=== PATIENT | male | born 1970 | race Caucasian/White ===

== ENCOUNTER 2020-01-14 13:50 | Inpatient (IN) | payer BC, SELFPAY ==
[2020-01-14] VITALS (38 sets, daily range): BP systolic 140–184; BP diastolic 87–147; PULSE 105–122; RESP 14–41; TEMP 36–36.9; O2SAT 86–100
--- NOTE | ~2020-01-14 | CT_ITS ---
EXAMINATION: CTA chest PE protocol DATE: 01/14/2020 18:06 INDICATION: Shortness of breath, chest pain TECHNIQUE: Computed tomography angiography (CTA) of the chest was performed with 100 mL Omnipaque-350 intravenous contrast timed to evaluate the pulmonary arteries. Coronal maximum intensity projection 3D-reconstructions were created by the technologist. Automated exposure control and iterative reconst ruction technique were employed. Exam dose: 826.95 mGy-cm total exam DLP. COMPARISON: 01/14/2020 portable AP chest FINDINGS: There is diagnostic contrast enhancement of the pulmonary arteries and no evidence of pulmo nary embolism. Cardiomegaly. No pericardial effusion. There are small bilateral pleural effusions. No thoracic aortic aneurysm or dissection. There is mild prominence of the mediastinal and hilar lymp h nodes, possibly reactive. There is pulmonary vascular congestion and thickening of the interlobular septa, consistent with aundrea estive heart failure and pulmonary interstitial edema. Included skeletal structures are unremarkable. IMPRESSION: No evidence of pulmonary embolism Cardiomegaly, congestive heart failure, mild pleural effusions Reviewed, dictated and finalized at [facility]. Reviewed, dictated and finalized at [facility].
--- NOTE | ~2020-01-14 | XR_ITS ---
EXAMINATION: XR chest 1V portable EXAM DATE: 01/14/2020 15:24 INDICATION: Shortness of breath. Generalized chest pain. TECHNIQUE: Portable AP frontal chest x-ray was obtained. Comparison is made to prior examination from 11/20/2016. FINDINGS: The lungs are clear. There are no pleural effusions. Cardiac silhouette is prominent but magnified on this AP technique. There is no pneumothorax suspected. The bones and soft tissues are unremarkable. IMPRESSION: No acute cardiopulmonary findings. Reviewed, dictated and finalized at location [facility].
--- NOTE | ~2020-01-14 | XR_ITS ---
XR chest 1V portable 01/16/2020 04:11 Indication: Shortness of breath Procedure: AP portable chest Comparison: 01/14/2020 Findings: Cardiomegaly with progression of interstitial edema. Small pleural effusions. No pneumothor ax. Impression: 1: Cardiomegaly with progression of interstitial edema. Reviewed, dictated and finalized at location [facility]. Impression: 1: Cardiomegaly with progression of interstitial edema.
--- NOTE | ~2020-01-14 | CT_ITS ---
EXAMINATION: CT soft tissue neck wo con EXAM DATE: 01/14/2020 18:06 INDICATION: Cheek abscess. TECHNIQUE: Spiral CT of the neck was performed without contrast. Axial, coronal and sagittal images were reviewed. The dose-length product (DLP) for this examination was 577.72 mGy-cm. The exposure was tailored according to patient size (auto mA exposure control), and iterative reconstruction (ASIR ) was used as additional dose reduction technique. There is no prior study for comparison. FINDINGS: There is contrast from the CT pulmonary scan which was performed immediately prior to this study. There is large ulceration along the left cheek with severe swelling deep to this, with a large phlegmon superficial to the left masseter muscle, and contiguous to the superficial lobe of the paro tid gland. This region in total measures about 7 cm in diameter by 2.3 cm in thickness. There are str ands of enhancement throughout this, solid component but there could be multiple loculations of fluid between these. No retropharyngeal or deeper abscess. No evidence of neck venous thrombosis. The thyroid gland is unr emarkable. The submandibular and parotid glands are symmetric. Some borderline-sized left interna l jugular chain lymph nodes, probably reactive. Enlarged right paratracheal and prevascular lymph no margaret; see pulmonary CT report same date. The airway is unremarkable. Parapharyngeal and pre-glottic fat planes are preserved. The orbits are unremarkable. Small right maxillary sinus mucous retent ion cyst. Mastoid air cells are well aerated. No sinus air-fluid levels. Partially imaged pleural ef fusions. There is overall moderate cervical spondylosis. IMPRESSION: 1. Large ulceration, phlegmon superficial to the left masseter, parotid, zygomatic arch, probably wi th multiple small pockets of necrosis/abscess. 2. Mild reactive left internal jugular lymphadenopathy. 3. Incompletely imaged mediastinal lymphadenopathy, correlate with dedicated CT report. Reviewed, dictated and finalized at location [facility]. IMPRESSION: 1. Large ulceration, phlegmon superficial to the left masseter, parotid, zygom atic arch, probably with multiple small pockets of necrosis/abscess. 2. Mild reactive left internal jugular lymphadenopathy. 3. Incompletely imaged mediastinal lymphadenopathy, correlate with dedicated C T report.
--- NOTE | 2020-01-14 14:24 | ECG_ITS ---
Measurements Intervals [place] Rate: 120 P: 64 LA: 154 QRS: 91 QRSD: 121 T: 85 QT: 329 QTc: 466 Interpretive Statements SINUS TACHYCARDIA RIGHT AXIS DEVIATION LEFT VENTRICULAR HYPERTROPHY AND ST-T CHANGE ST ELEVATION IN ANTERIOR LEADS- PROBABLY EARLY REPOLARIZATION BORDERLINE ST-T WAVE ABNORMALITY- INF/LAT LEADS ABNORMAL ECG Electronically Signed On 01-14-2020 14:46:34 CDT by Dave Rowley D.O.
[2020-01-14 14:44] LABS: Glucose Point of Care 467 (65-105)
[2020-01-14] MEDS: SODIUM CHLORIDE 0.9% IV 1,000 ML 999 ML IV CONT ×2 (14:49→16:38)
[2020-01-14 14:54] LABS: Basophils Absolute Auto 0.1 K/mm3 (0.0-0.1); Basophils Percent Auto 0.3 % (0.2-1.2); Eosinophils Absolute Auto 0.1 K/mm3 (0-0.3); Eosinophils Percent Auto 0.5 % (0-4.4); Hematocrit 44.8 % (42.0-52.0); Hemoglobin 15.7 g/dL (14.0-18.0); Immature Granulocyte Absolute 0.09 K/mm3 (0.00-0.031); Immature Granulocyte Percent A 0.5 % (0-0.5); Lymphocytes Absolute Auto 1.84 K/mm3 (0.9-3.2); Lymphocytes Percent Auto 10.9 % (18.3-44.2); Mean Corpuscular Hemoglobin 30.4 pg (26-34); Mean Corpuscular Volume 86.7 fl (80-100); Monocytes Absolute Auto 1.2 K/mm3 (0.1-0.6); Monocytes Percent Auto 6.8 % (2.6-8.5); Neutrophils Absolute Auto 13.6 K/mm3 (1.3-6.7); Platelet Count Result 305 k/mm3 (150-375); Red Blood Count 5.17 M/mm3 (4.6-6.20); White Blood Count 16.8 K/mm3 (4.5-10.0)
[2020-01-14 15:06] LABS: Lactic Acid Reflex 1.6 mmol/L (0.7-2.1)
[2020-01-14 15:15] LABS: Alanine Aminotransferase 12 U/L (4-50); Albumin Level 3.4 g/dL (3.5-5.1); Alkaline Phosphatase 166 U/L (38-126); Anion Gap 9 mmol/L (8-16); Aspartate Amino Transferase 20 U/L (17-59); Bilirubin,Total 0.5 mg/dL (0.2-1.3); Blood Urea Nitrogen 10 mg/dL (9-20); Calcium 8.6 mg/dL (8.4-10.2); Carbon Dioxide 23 mmol/L (22-30); Chloride 97 mmol/L (98-107); Estimated CRCL calculation 133 ml/min; Estimated Glomerular Filt Rate > 60; Glucose 540 mg/dL (75-110); Potassium 3.9 mmol/L (3.4-5.0); Sodium 129 mmol/L (137-145)
[2020-01-14 15:18] LABS: INR 1.1; Partial Thromboplastin Time 31.5 SECONDS (22.3-36.8); Prothrombin Time 13.7 Seconds (11.1-14.7)
[2020-01-14 15:24] LABS: Troponin I 0.043 ng/mL (0.000-0.034)
[2020-01-14] MEDS: ASPIRIN 81 MG CHEWABLE TABLET 324 MG PO (16:06)
[2020-01-14 16:19] LABS: Add Urine Microscopic? YES; Appearance Urine Clear (Clear); Bilirubin Urine Negative (Negative); Blood Urine Negative (Negative); Color Urine Straw (Yellow); Glucose Urine UA 3+ mg/dL (Negative); Ketones Urine Negative (Negative); Leukocyte Esterase Ur Negative LEU/UL (Negative); Nitrate Urine Negative (Negative); Protein Urine Negative (Negative); RBC Urine 0-2 /hpf (0-2); Urobilinogen Urine Negative mg/dL (<2.0); WBC Urine 0-3 /hpf
[2020-01-14 16:23] LABS: Specific Grav Ur 1.032 (1.001-1.035)
[2020-01-14 16:34] LABS: Amphetamine Screen Urine Positive (Negative); Barbiturate Screen Urine Negative (Negative); Benzodiazepines Screen Urine Negative (Negative); Cannabinoid Screen Urine Negative (Negative); Cocaine Screen Urine Negative (Negative); Methadone Screen Urine Negative (Negative); Opiate Screen Urine Negative (Negative); Phencyclidine Screen Urine Negative (Negative)
[2020-01-14] MEDS: MORPHINE SULFATE 4 MG/ML INJ IV PUSH (16:39)
[2020-01-14 16:44] LABS: Base Excess ABG -0.2 mEq/l (+/-2.0); Fractional Inspired Oxygen 21 %; HCO3 ABG 21.9 mEq/l (22.0-26.0); Methemoglobin ABG 0.2 %THb (0-1.5); Oxygen Content ABG 20.4 %vol (16.0-22.0); Oxygen Saturation ABG 94.2 % (95.0-100.0); Oxyhemoglobin 92.2 % THb (90.0-100.0); PCO2 ABG 29.8 mmHg (35.0-45.0); PO2 FiO2 Ratio Arterial Blood 3.05 %; Reduced Hemoglobin 5.6 %THb (0-5.0); Total Hemoglobin 15.8 g/dL (12.0-18.0); pH ABG 7.485 (7.350-7.450)
[2020-01-14 16:46] LABS: Device ROOM AIR; Modified Allen's Test Pass; Site Drawn LEFT RADIAL
[2020-01-14] MEDS: LIDOCAINE HCL 1% LOCAL INJ 20 ML VIAL (17:23)
[2020-01-14] MEDS: MORPHINE SULFATE 2 MG/ML INJ ×2 (17:23)
[2020-01-14] MEDS: INSULIN HUMAN REGULAR (*BKC) 100 UNITS/ML 10 UNITS IV PUSH (18:11)
--- NOTE | 2020-01-14 19:03 | ED.GENADULT ---
HPI - General Adult General Chief complaint: Wound/Laceration <Gab Rojas PA-C - Last Filed: 01/14/20 19:42> Stated complaint: Boil on face <Gab Rojas PA-C - Last Filed: 01/14/20 19:42> Time Seen by Provider: 01/14/20 14:11 <Gab Rojas PA-C - Last Filed: 01/14/20 19:42> Source: patient <Gab Rojas PA-C - Last Filed: 01/14/20 19:42> Mode of arrival: ambulatory <Gab Rojas PA-C - Last Filed: 01/14/20 19:42> Limitations: no limitations <Gab Rjoas PA-C - Last Filed: 01/14/20 19:42> History of Present Illness HPI narrative: Patient is a 49-year-old male who presents to emergency department for evaluation of facial abscess that has been present for 1 week patient has been attempting to manage the abscess at home by himself with gradually increasing size every day. Patient notes moderate aching pain worse with any activity touch or movement. Patient also notes over the last couple of months he has had intermittent chest pain and dyspnea. Patient notes he has history of acute coronary syndrome and diabetes mellitus historically but has not been seen by any doctor in the recent past nor has he been taking any medications. Patient denies fever vomiting diarrhea or URI symptoms <Gab Rojas PA-C - Last Filed: 01/14/20 19:42> Related Data Home medications: Home Medications Medication Instructions Recorded Confirmed No Home Medications 01/14/20 <Gab Rojas PA-C - Last Filed: 01/14/20 19:42> Allergies/adverse reactions: Allergies Allergy/AdvReac Type Severity Reaction Status Date / Time No Known Allergies Allergy Verified 01/14/20 14:40 <Gab Rojas PA-C - Last Filed: 01/14/20 19:42> Review of Systems Review of Systems: All systems reviewed & are unremarkable except as noted in HPI and below <Gab Rojas PA-C - Last Filed: 01/14/20 19:42> PMFSH Past Medical History Medical History: Medical History (Updated 01/14/20 @ 19:12 by Gab Rojas PA-C) Diabetes mellitus Hx of medication noncompliance Hypertension Obesity <Gab Rojas PA-C - Last Filed: 01/14/20 19:42> Social History Social History: Social History (Updated 01/14/20 @ 19:05 by Gab Rojas PA-C) Smoking status: Current every day smoker Substance use type: amphetamines Gender identity (if verbalized by the patient): Male <Gab Rojas PA-C - Last Filed: 01/14/20 19:42> Exam Narrative: Exam Narrative: GENERAL: Well-appearing, obese, and in no acute distress. HEAD: Normocephalic, atraumatic. EYES: PERRLA and EOMI. ENT: Nares clear, no rhinorrhea or epistaxis. Mucous membranes moist. Oropharynx without tonsillar hypertrophy exudate or other lesions. NECK: Supple. No adenopathy or masses. CHEST: Clear to auscultation. No respiratory distress. No wheezes rales or rhonchi HEART: Tachycardic rate and regular rhythm. No murmur heard. Normal peripheral pulses. ABDOMEN: Soft, nontender, nondistended, EXTREMITIES: Normal range of motion. No edema. SKIN: Warm, dry, no rash. Patient with large tender red area to the left cheek in the preauricular region that is isolated to the cheek with purulent drainage from multiple openings NEURO: No focal deficits. Alert and oriented x3. Cranial nerves II through XII grossly intact PSYCH: Normal mood and affect. <Gab Rojas PA-C - Last Filed: 01/14/20 19:42> Course Course Emergency Course: Patient in the room at this time aware of case findings treatment plan patient resting in the room comfortably agreeing to stay in hospital will be seen by ENT for follow-up on his facial wound patient will be managed by the hospitalist service. Antibiotics were initiated in the emergency department. Patient will be placed in the IMU with trending of his troponins. Patient denying any chest pain at this time <Gab Rojas PA-C - Last Filed: 01/14/20 19:
--- NOTE | 2020-01-14 19:56 | PM.IMHP ---
H&P: HPI History of Present Illness Date/Time: 01/14/20 19:56 Chief complaint: Facial abscess, elevated troponin, heart failure Narrative: This is a pleasant 49 year old Diabetic male who presented to the hospital with a complaint of a left sided facial abscess that has been worsening over the past 5 days. He believes that it started out as an ingrown hair after shaving. He admits to popping it the first day when he noticed it but since then it has been slowly getting larger, more red, and painful. He denies any fever, nausea, vomiting, chills, sore throat, cough, but does report that he has ongoing chest heaviness and exertional dyspnea. He has not noticed any LE swelling. He reports having a heart attack about 10 years ago but denies any stents. He currently does not take any medications for his diabetes. He tested positive for methamphetamines in the ER and admitted to methamphetamine abuse. The patient was evaluated in the ER and found to have a large left sided facial phelgmon which was incised and drained at bedside. CTA Chest demonstrated no evidence of pulmonary embolism. Cardiomegaly, congestive heart failure, and mild pleural effusions. His troponin came back mildly positive at 0.043. The patient was started on Vancomycin and Ertapenem and given IV fluids. Cardiology and ENT were both consulted. Review of Systems Review of Systems: All systems reviewed & are unremarkable except as noted in HPI and below PMFSH Past Medical History Medical History (Updated 01/14/20 @ 20:31 by Yusuf Resendez MD) Diabetes mellitus Hx of medication noncompliance Hypertension Obesity Surgical History Surgical History (Updated 01/14/20 @ 20:06 by Yusuf Resendez MD) History of surgery on left wrist Family History Family History (Updated 01/14/20 @ 20:06 by Yusuf Resendez MD) Father Acute myocardial infarction of an acute RI at age 40. Social History Social History Smoking packs per day: 0.25 Smoking cigarettes per day: 5.0 Smoking status: Light tobacco smoker Tobacco type: cigarettes Second hand tobacco smoke exposure: Yes Alcohol intake: never Substance use: current Substance use type: methamphetamine Gender identity (if verbalized by the patient): Male Spiritual care concerns: No Meds Home Medications and Allergies Home Medications Medication Instructions Recorded Confirmed Type No Home Medications 01/14/20 01/14/20 History Allergies Allergy/AdvReac Type Severity Reaction Status Date / Time No Known Allergies Allergy Verified 01/14/20 14:40 Vital Signs Vital Signs - 24 hr 01/14/20 13:59 01/14/20 14:38 01/14/20 14:39 Temperature 36.9 C Pulse Rate 122 H 119 H 119 H Respiratory Rate 19 23 H 18 Blood Pressure 156/108 H 150/110 H Pulse Oximetry 100 96 94 01/14/20 14:45 01/14/20 15:01 01/14/20 15:02 Temperature Pulse Rate 116 H 115 H 113 H Respiratory Rate 24 H 16 14 Blood Pressure 145/100 H Pulse Oximetry 99 96 91 01/14/20 15:15 01/14/20 15:16 01/14/20 15:31 Temperature Pulse Rate 116 H 117 H 109 H Respiratory Rate 33 H 33 H 18 Blood Pressure 167/128 H 178/120 H Pulse Oximetry 92 97 95 01/14/20 15:32 01/14/20 15:45 01/14/20 15:46 Temperature Pulse Rate 113 H 118 H Respiratory Rate 25 H 31 H Blood Pressure 162/118 H Pulse Oximetry 91 94 93 01/14/20 15:47 01/14/20 16:31 01/14/20 16:33 Temperature Pulse Rate Respiratory Rate Blood Pressure 157/113 H Pulse Oximetry 92 95 01/14/20 16:51 01/14/20 17:01 01/14/20 17:11 Temperature Pulse Rate 114 H Respiratory Rate 36 H Blood Pressure 147/117 H Pulse Oximetry 96 01/14/20 17:15 01/14/20 18:12 Temperature Pulse Rate 114 H 114 H Respiratory Rate 21 H 29 H Blood Pressure 143/101 H Pulse Oximetry 94 Exam Const: General: cooperative, alert, awake and ill appearing Nutr
[2020-01-14 20:45] LABS: Cholesterol 208 mg/dL (0-200); HDL Direct 24 mg/dL; Triglycerides 177 mg/dL (<150)
[2020-01-14] MEDS: LACTATED RINGERS 1,000 ML 125 ML IV CONT (20:50)
[2020-01-14 20:56] LABS: LDL Cholesterol Direct 143 mg/dL
[2020-01-14 21:00] LABS: NT Pro B Type Natriuretic Pept 3980 PG/ML (5-100); Troponin I 0.048 ng/mL (0.000-0.034)
[2020-01-14] MEDS: FAMOTIDINE 20 MG/2 ML VIAL IV PUSH (22:44)
[2020-01-14] MEDS: FUROSEMIDE INJ 40 MG/4 ML VIAL IV PUSH (22:44)
[2020-01-14 22:51] LABS: Glucose Point of Care 148 (65-105)
[2020-01-14 23:51] LABS: Troponin I 0.054 ng/mL (0.000-0.034)
[2020-01-15] VITALS (15 sets, daily range): BP systolic 118–171; BP diastolic 78–109; PULSE 100–125; RESP 18–24; TEMP 35.9–37.4; O2SAT 94–97
[2020-01-15 00:31] LABS: Glucose Point of Care 393 (65-105)
[2020-01-15] MEDS: INSULIN ASPART (*BKC) 100 UNITS/ML SUB-Q ×4 (00:44→18:16)
--- NOTE | 2020-01-15 00:54 | ADMIMU ---
This patient, Ayana Lee, was admitted to IMU status, and placed in IMU Room 214-01 at 2220. Patient/family oriented to hospital policies and general routines including ID bracelet, bed and alarms, visiting hours, pain management, procedures, bathroom and other care routines, personal items, smoking policy, room service/diet, and visiting hours. Valuables list has been completed. Information on how to activate the Rapid Response Team has been discussed. Patient/Family are encouraged to report perceived risks to care and to ask questions if they do not understand what they are told or what they should do.
[2020-01-15 05:35] LABS: Basophils Absolute Auto 0.1 K/mm3 (0.0-0.1); Basophils Percent Auto 0.4 % (0.2-1.2); Eosinophils Absolute Auto 0.1 K/mm3 (0-0.3); Eosinophils Percent Auto 0.5 % (0-4.4); Hematocrit 45.4 % (42.0-52.0); Hemoglobin 15.7 g/dL (14.0-18.0); Immature Granulocyte Percent A 0.5 % (0-0.5); Lymphocytes Absolute Auto 2.16 K/mm3 (0.9-3.2); Lymphocytes Percent Auto 11.7 % (18.3-44.2); Mean Corpuscular HGB Conc 34.6 g/dl (32-36); Mean Corpuscular Hemoglobin 29.8 pg (26-34); Mean Corpuscular Volume 86.3 fl (80-100); Monocytes Absolute Auto 1.5 K/mm3 (0.1-0.6); Neutrophils Absolute Auto 14.6 K/mm3 (1.3-6.7); Neutrophils Percent Auto 78.9 % (45.5-73.1); Platelet Count Result 325 k/mm3 (150-375); Red Blood Count 5.26 M/mm3 (4.6-6.20); Red Cell Distribution Width 12.1 % (11.5-14.5); White Blood Count 18.5 K/mm3 (4.5-10.0)
[2020-01-15 05:42] LABS: Hemoglobin A1C 13.6 % (<5.7)
[2020-01-15 05:44] LABS: Anion Gap 7 mmol/L (8-16); Blood Urea Nitrogen 8 mg/dL (9-20); Calcium 8.6 mg/dL (8.4-10.2); Carbon Dioxide 23 mmol/L (22-30); Chloride 102 mmol/L (98-107); Estimated CRCL calculation 122 ml/min; Estimated Glomerular Filt Rate > 60; Glucose 261 mg/dL (75-110); Potassium 3.4 mmol/L (3.4-5.0); Sodium 132 mmol/L (137-145)
--- NOTE | 2020-01-15 06:00 | ECHO_ITS ---
Patient Info Name: Ayana Lee Age: 49 years : 1970 Gender: Male Ht: 68 in Wt: 188 lbs BSA: 2.04 m2 HR: 120 bpm BP: 171 / 109 mmHg Heart Rhythm: Sinus Rhythm Technical Quality: Good Exam Date: 01/15/2020 9:05 AM Exam Location: [facility] Pulmonary Exam Room: 214 Patient Status: Inpatient Admit Date: 01/14/2020 Staff Ordering Physician: Gab Rojas PA-C Cpa Tax: Neha Ford RDCS Attending Provider: Yusuf Resendez MD Referring Physician: Bob RIVERA; Exam Type: CA echo doppler color flow Study Info Indications - chest heaviness rodriguez chf Complete two-dimensional, color flow and Doppler transthoracic echocardiogram is performed. Summary 1. Complete two-dimensional, color flow and Doppler transthoracic echocardiogram is performed. 2. Left ventricular chamber dimension is moderately enlarged. 3. Left ventricular systolic function is severely reduced, estimated at 20-25%. 4. Left atrial chamber dimension is moderately enlarged. 5. There is mild mitral valve regurgitation. 6. MR is the result of annular dilation. Left Ventricle Left ventricular chamber dimension is moderately enlarged. Left ventricular systolic function is severely reduced, estimated at 20-25%. There is moderate concentric increased left ventricular wall thickness. The left ventricular diastolic function is grade I diastolic dysfunction. Right Ventricle Right ventricular chamber dimension is mildly enlarged. Left Atria Left atrial chamber dimension is moderately enlarged. Right Atria Right atrial chamber dimension is normal. Aortic Valve The aortic valve is normal. Pulmonic Valve The pulmonic valve is normal. Mitral Valve The mitral valve has normal leaflets. There is mild mitral valve regurgitation. MR is the result of annular dilation. Tricuspid Valve The tricuspid valve leaflets are normal. There is mild tricuspid valve regurgitation. Pericardium/Pleural The pericardium appears normal. Aorta The aortic root size at the sinus of Valsalva is normal. Left Ventricular Outflow Tract Name Value Normal LVOT 2D LVOT Diameter 2.1 cm LVOT Doppler LVOT Peak Gradient 4 mmHg LVOT Mean Gradient 3 mmHg LVOT VTI 14 cm LVOT VTI/AV VTI Ratio 1.0 LVOT Stroke Volume 50 ml LVOT CO 16.6 l/min LVOT CI 8.1 l/min/m2 Pulmonic Valve Name Value Normal PV Doppler PV Peak Gradient 2 mmHg Mitral Valve Name Value Normal MV Doppler -----
[2020-01-15 06:42] LABS: Glucose Point of Care 234 (65-105)
--- NOTE | 2020-01-15 07:31 | WPDCN ---
HPI Data of Consult Date/Time: 01/15/20 07:31 Requesting Physician: Yusuf Resendez MD Primary Care Provider: [employer] DEVELOPER PHYSICIAN Consult Narrative Narrative: Ayana Lee is a 49 year old male Status to see patient for an abscess he was admitted through the emergency room they drain the abscess in the emergency room and packed it is no prior history physical exam reveals of the with the dressing off a large abscess packing was removed treatment involves of cleaning the packed the abscess out in changing the dressing cm on a p.r.n. basis PMFSH Past Medical History Medical History (Updated 01/14/20 @ 20:31 by Yusuf Resendez MD) Diabetes mellitus Hx of medication noncompliance Hypertension Obesity Surgical History Surgical History (Updated 01/14/20 @ 20:06 by Yusuf Resendez MD) History of surgery on left wrist Family History Family History (Updated 01/14/20 @ 20:06 by Yusuf Resendez MD) Father Acute myocardial infarction of an acute [place] at age 40. Social History Social History Smoking packs per day: 0.25 Smoking cigarettes per day: 5.0 Smoking status: Light tobacco smoker Tobacco type: cigarettes Second hand tobacco smoke exposure: Yes Alcohol intake: never Substance use: current Substance use type: methamphetamine Gender identity (if verbalized by the patient): Male Spiritual care concerns: No Meds Home Medications and Allergies Home Medications Medication Instructions Recorded Confirmed Type No Home Medications 01/14/20 01/14/20 History Allergies Allergy/AdvReac Type Severity Reaction Status Date / Time No Known Allergies Allergy Verified 01/14/20 14:40 Vital Signs Vital Signs - 24 hr 01/14/20 13:59 01/14/20 14:38 01/14/20 14:39 Temperature 36.9 C Pulse Rate 122 H 119 H 119 H Respiratory Rate 19 23 H 18 Blood Pressure 156/108 H 150/110 H Pulse Oximetry 100 96 94 01/14/20 14:45 01/14/20 15:01 01/14/20 15:02 Temperature Pulse Rate 116 H 115 H 113 H Respiratory Rate 24 H 16 14 Blood Pressure 145/100 H Pulse Oximetry 99 96 91 01/14/20 15:15 01/14/20 15:16 01/14/20 15:31 Temperature Pulse Rate 116 H 117 H 109 H Respiratory Rate 33 H 33 H 18 Blood Pressure 167/128 H 178/120 H Pulse Oximetry 92 97 95 01/14/20 15:32 01/14/20 15:45 01/14/20 15:46 Temperature Pulse Rate 113 H 118 H Respiratory Rate 25 H 31 H Blood Pressure 162/118 H Pulse Oximetry 91 94 93 01/14/20 15:47 01/14/20 16:31 01/14/20 16:33 Temperature Pulse Rate Respiratory Rate Blood Pressure 157/113 H Pulse Oximetry 92 95 01/14/20 16:51 01/14/20 17:01 01/14/20 17:11 Temperature Pulse Rate 114 H Respiratory Rate 36 H Blood Pressure 147/117 H Pulse Oximetry 96 01/14/20 17:15 01/14/20 17:33 01/14/20 17:45 Temperature Pulse Rate 114 H 115 H 112 H Respiratory Rate 21 H 37 H Blood Pressure Pulse Oximetry 95 86 L 01/14/20 17:46 01/14/20 18:06 01/14/20 18:12 Temperature Pulse Rate 115 H 114 H Respiratory Rate 29 H Blood Pressure 145/131 H 143/101 H Pulse Oximetry 93 94 01/14/20 18:17 01/14/20 18:31 01/14/20 18:32 Temperature Pulse Rate 108 H 107 H 105 H Respiratory Rate 27 H 27 H 30 H Blood Pressure 160/101 H Pulse Oximetry 01/14/20 18:56 01/14/20 19:01 01/14/20 19:03 Temperature Pulse Rate 108 H 107 H 110 H Respiratory Rate 30 H 25 H 27 H Blood Pressure 151/100 H Pulse Oximetry 01/14/20 19:15 01/14/20 19:16 01/14/20 20:01 Temperature Pulse Rate 112 H 113 H 114 H Respiratory Rate 36 H 41 H Blood Pressure 162/116 H 179/108 H Pulse Oximetry 01/14/20 20:02 01/14/20 20:15 01/14/20 20:16 Temperature Pulse Rate 116 H 112 H 115 H Respiratory Rate Blood Pressure 184/147 H Pulse Oximetry 01/14/20 22:17 01/15/20 04:00 Temperature 36.0 C L 36.2 C L Pulse Rate 117 H 123
[2020-01-15 08:16] LABS: Glucose Point of Care 234 (65-105)
[2020-01-15] MEDS: FUROSEMIDE INJ 40 MG/4 ML VIAL 20 MG IV PUSH (09:37)
[2020-01-15] MEDS: ASPIRIN 81 MG CHEWABLE TABLET PO (09:37)
[2020-01-15] MEDS: FAMOTIDINE 20 MG/2 ML VIAL IV PUSH ×2 (09:43→19:52)
--- NOTE | 2020-01-15 10:20 | PM.IMPN ---
Progress Note: A&P Assessment and Plan (1) Phlegmon: Code(s): L02.91 - Cutaneous abscess, unspecified Status: Acute Assessment and Plan: Patient presents with left facial wound; CT shows large ulceration, phlegmon superficial to left masseter, parotid, zygomatic arch probably with multiple small pockets of necrosis/abscess and surrounding mild reactive lymphadenopathy. Continue IV vancomycin, imipenem per antibiotic stewardship guidelines. s/p I&D in the ED. Seen by ENT, Dr Simon this AM. I discussed case with him. I feel the patient may require plastic surgery evaluation. As it appears there is no plastic surgeon human factors ergonomist this weekend, this may require transfer to another facility. I have also requested ID consultation at this time - appreciate any input. (2) Elevated troponin: Code(s): R79.89 - Other specified abnormal findings of blood chemistry Status: Acute Assessment and Plan: Cardiology was consulted from ED to rule out ACS. Patient is a fair historian at best but vaguely describes some intermittent chest pressure over the last 2 days with associated shortness of breath; none this AM. Troponins are mildly elevated with a relatively flat profile. Echocardiogram pending. Could be related to methamphetamine use vs. questionable CHF. Appreciate cardiology recommendations. (3) Acute CHF: Qualifiers: Heart failure type: unspecified Qualified Code(s): I50.9 - Heart failure, unspecified Code(s): I50.9 - Heart failure, unspecified Status: Suspected Assessment and Plan: Patient presents with chest pressure, shortness of breath, BNP elevated at 3980 with pulmonary vascular congestion on imaging. Echocardiogram pending. Appreciate cardiology input. For now continue IV lasix and monitor with I&Os, daily weights, low sodium diabetic diet. (4) Hypertension: Qualifiers: Hypertension type: unspecified Qualified Code(s): I10 - Essential (primary) hypertension Code(s): I10 - Essential (primary) hypertension Status: Chronic Assessment and Plan: Uncontrolled HTN. Does not take any medications or seek really any medical care at all for that matter. Continue IV hydralazine PRN for now while awaiting cardiology consultation. If he has a component of heart failure I presume he may benefit from beta-blockade and DEANNE. Continue to monitor BP. (5) Uncontrolled diabetes mellitus: Qualifiers: Diabetes mellitus type: type 2 Glycemic state: with hyperglycemia Qualified Code(s): E11.65 - Type 2 diabetes mellitus with hyperglycemia Code(s): E11.65 - Type 2 diabetes mellitus with hyperglycemia Status: Chronic Assessment and Plan: Hgb A1c is 13.6. He tells me he stopped taking his insulin about 1 year ago and does not go to the doctor. He tells me he recently started checking his blood sugars again 2 days ago but cannot recall how high they were. Admits he doesn't know what his blood sugars should even be. I provided some diabetes education and he will benefit from seeing DM educator. (6) Sepsis: Qualifiers: Sepsis acute organ dysfunction status: without acute organ dysfunction Sepsis type: sepsis due to unspecified organism Qualified Code(s): A41.9 - Sepsis, unspecified organism Code(s): A41.9 - Sepsis, unspecified organism Status: Acute Assessment and Plan: Evident by tachycardia, tachypnea, leukocytosis. Source appears to be skin. Continue IV antibiotics, wound and blood cultures pending. Monitor vital signs and urine output. (7) Tobacco dependence: Code(s): F17.200 - Nicotine dependence, unspecified, uncomplicated S
[2020-01-15] MEDS: INSULIN ASPART (*BKC) 100 UNITS/ML 7 UNITS SUB-Q ×3 (10:57→17:46)
[2020-01-15 12:39] LABS: Glucose Point of Care 293 (65-105)
[2020-01-15] MEDS: POTASSIUM CHLORIDE 20 MEQ TABLET PO (12:54)
--- NOTE | 2020-01-15 13:19 | PM.CNCAR ---
Assessment and Plan Additional Plan 49-year-old man who is being seen today because of an elevated troponin level with no clinical evidence of an acute coronary syndrome. This does not merit further evaluation in my opinion. It has nothing to do with the facial abscess for which he is being hospitalized. I believe she has longstanding diabetes and hypertension neither of which have been treated at all. Will go ahead and start him on a beta-anastacia at this time. Echocardiogram has been ordered which I will review later and determine if further adjustments in his antihypertensive regimen are in order. I am not sure that the diagnosis in his chart of an acute NY in the past is accurate/legitimate or not since he describes being hospitalized a decade ago with a spider bite which seems to me that to be unlikely the reason for an acute NY. Obviously we do not have those hospital records to review at this time. Further recommendations will be for regarding his blood pressure will be forthcoming after I assess his response to treatment and review his echocardiogram Eric Salter MD [facility] History of Present Illness History of Present Illness Consult date/time: 01/15/20 13:19 Reason For Visit: Facial abscess, elevated troponin, heart failure Narrative: this is a 49-year-old man who I am seeing at the request of the hospitalist because of the elevation in his troponin level that was sampled when he was in the emergency room. The patient came to the emergency room yesterday evening because of a abscess on the side of his face which was swelling and becoming painful and warm for about 5-6 days. He was not having any obvious cardiac symptoms so I do not have any obvious explanation as to why troponin levels were done. The level was minimally elevated at 0.05 prompting consultation for me to see him. The chart indicates the patient has a history of hypertension and diabetes and he is noncompliant with treating either of these he is taking no medication and not seeing a physician for follow-up of his medical problems. The chart also indicates that he has a history of a previous myocardial infarction. The patient states that he believes that diagnosis was given to him when he was hospitalized in [place] about 10 years ago with a spider bite. He can't remember how the diagnosis of an NY was arrived at any does not remember having any cardiac procedures done. It is therefore not clear to me as to whether that diagnosis is legitimate or not. His electrocardiogram shows sinus tachycardia with left ventricular hypertrophy and secondary repolarization abnormalities. He is not having any exertional chest pain pressure or heaviness he denies any symptoms of orthopnea PND or lower extremity edema. The patient is unmarried and has 3 children he smokes cigarettes. Of note his drug screen is positive for methamphetamine. Review of Systems Constitutional: Constitutional: Reports fatigue Eyes: Eyes: Reports no additional eye complaints ENT: Reports as per HPI Cardiovascular: Cardiovascular: Reports no additional cardiovascular complaints Respiratory: Respiratory: Reports no additional respiratory complaints Gastrointestinal: Gastrointestinal: Reports no additional gastrointestinal complaints Musculoskeletal: Musculoskeletal: Reports myalgias Integumentary/Breasts: Skin/Breast: Reports system reviewed and no additional complaints, except as docu Neurologic: Reports system reviewed and no additional complaints, except as documented Psychiatric: Psychiatric: Reports no additional psychiatric complaints Endocrine: Endocrine: Reports no additional endocrine complaints Hematologic/Lymphatic: Hematologic/Lymphatic: Reports no additional hematologic/lymphatic complaints Allergic/Immunologic: Allergic/Immunologic: Reports no additional allergic/immunologic complaints [facility] Past Medical History Medical History (Updated 01/15/20 @ 11:33 by Christine
[2020-01-15] MEDS: METOPROLOL SUCCINATE EXT REL 50 MG TABCR PO (14:27)
[2020-01-15 18:17] LABS: Glucose Point of Care 299 (65-105)
--- NOTE | 2020-01-15 18:54 | PC.NURSE ---
This patient, Ayana Lee, [facility] at 1854. Personal belongings sent with patient. Belongings list checked and signed with receiving RN. Report given to JEROME Lopez. Appropriate documentation sent with patient.
[2020-01-15] MEDS: INSULIN GLARGINE (*BKC) 100 UNITS/ML 17 UNITS SUB-Q (19:47)
[2020-01-15 21:35] LABS: Glucose Point of Care 341 (65-105)
[2020-01-15 23:34] LABS: Glucose Point of Care 158 (65-105)
[2020-01-16] VITALS (12 sets, daily range): BP systolic 122–162; BP diastolic 56–119; PULSE 10–113; RESP 16–20; TEMP 36.3–36.8; O2SAT 92–100
[2020-01-16] MEDS: hydrALAZINE HCL 20 MG/ML VIAL 10 MG IV PUSH (00:22)
[2020-01-16] MEDS: FUROSEMIDE INJ 40 MG/4 ML VIAL IV PUSH (04:46)
[2020-01-16] MEDS: INSULIN ASPART (*BKC) 100 UNITS/ML SUB-Q ×5 (05:36→17:55)
[2020-01-16 05:37] LABS: Basophils Absolute Auto 0.1 K/mm3 (0.0-0.1); Basophils Percent Auto 0.5 % (0.2-1.2); Eosinophils Absolute Auto 0.2 K/mm3 (0-0.3); Hematocrit 46.9 % (42.0-52.0); Hemoglobin 16.2 g/dL (14.0-18.0); Immature Granulocyte Absolute 0.09 K/mm3 (0.00-0.031); Immature Granulocyte Percent A 0.6 % (0-0.5); Lymphocytes Absolute Auto 3.03 K/mm3 (0.9-3.2); Lymphocytes Percent Auto 19.7 % (18.3-44.2); Mean Corpuscular HGB Conc 34.5 g/dl (32-36); Mean Corpuscular Hemoglobin 30.1 pg (26-34); Mean Corpuscular Volume 87.2 fl (80-100); Mean Platelet Volume 10.6 fl (7.4-10.4); Monocytes Absolute Auto 1.2 K/mm3 (0.1-0.6); Monocytes Percent Auto 7.5 % (2.6-8.5); Neutrophils Absolute Auto 10.9 K/mm3 (1.3-6.7); Neutrophils Percent Auto 70.7 % (45.5-73.1); Platelet Count Result 359 k/mm3 (150-375); Red Blood Count 5.38 M/mm3 (4.6-6.20); Red Cell Distribution Width 11.9 % (11.5-14.5); White Blood Count 15.4 K/mm3 (4.5-10.0)
[2020-01-16 05:56] LABS: Anion Gap 8 mmol/L (8-16); Blood Urea Nitrogen 12 mg/dL (9-20); Calcium 8.7 mg/dL (8.4-10.2); Carbon Dioxide 24 mmol/L (22-30); Chloride 99 mmol/L (98-107); Estimated CRCL calculation 94 ml/min; Estimated Glomerular Filt Rate > 60; Glucose 272 mg/dL (75-110); Magnesium 1.7 mg/dL (1.6-2.3); Potassium 3.2 mmol/L (3.4-5.0); Sodium 131 mmol/L (137-145)
[2020-01-16 06:08] LABS: Glucose Point of Care 285 (65-105)
[2020-01-16] MEDS: METOPROLOL SUCCINATE EXT REL 50 MG TABCR PO (09:01)
[2020-01-16] MEDS: INSULIN ASPART (*BKC) 100 UNITS/ML 10 UNITS SUB-Q ×2 (09:02→11:59)
[2020-01-16] MEDS: POTASSIUM CHLORIDE 20 MEQ TABLET 40 MEQ PO (09:03)
[2020-01-16 09:18] LABS: Glucose Point of Care 236 (65-105)
--- NOTE | 2020-01-16 11:14 | PM.IMPN ---
Progress Note: A&P Assessment and Plan (1) Phlegmon: Code(s): L02.91 - Cutaneous abscess, unspecified Status: Acute Assessment and Plan: Patient presents with left facial wound; CT shows large ulceration, phlegmon superficial to left masseter, parotid, zygomatic arch probably with multiple small pockets of necrosis/abscess and surrounding mild reactive lymphadenopathy. s/p I&D in the ED still open with purulent drainage. Continue IV vancomycin, imipenem per antibiotic stewardship guidelines. Wound culture has heavy growth of Staph aureus, awaiting sensitivities. Blood cultures are pending with no growth to date. Seen by ENT, Dr Simon. I discussed case with him yesterday. I have also requested ID consultation at this time - appreciate any input. I spoke with Dr Alin Drew, ENT at [facility] who was able to review patient's imaging and felt that given the complexity of the phlegmon and comorbidities the patient would be best suited for transfer to ENT face team at [place] for higher level of care. Patient will need to be on medical floor for 24 hrs before attempting again transfer to [place] - will proceed with transfer in AM. (2) Elevated troponin: Code(s): R79.89 - Other specified abnormal findings of blood chemistry Status: Acute Assessment and Plan: Troponins are mildly elevated with a relatively flat profile. Could be related to methamphetamine use vs. CHF. (3) Acute CHF: Qualifiers: Heart failure type: unspecified Qualified Code(s): I50.9 - Heart failure, unspecified Code(s): I50.9 - Heart failure, unspecified Status: Suspected Assessment and Plan: BNP elevated at 3980 with pulmonary vascular congestion on imaging. Became fluid overloaded just from vancomycin last night and was given a dose of IV lasix early this morning. Echocardiogram shows significantly reduced systolic function, EF 20-25%. Suspect this could be related to his methamphetamine use. Appreciate Cardiology recommendations. Today he remains on metoprolol succinate 50 mg daily. Monitor with I&Os, daily weights, low sodium diabetic diet. (4) Hypertension: Qualifiers: Hypertension type: unspecified Qualified Code(s): I10 - Essential (primary) hypertension Code(s): I10 - Essential (primary) hypertension Status: Chronic Assessment and Plan: Uncontrolled HTN. Does not take any medications or seek really any medical care at all for that matter. Improved. Continue metoprolol. Continue IV hydralazine PRN. Monitor BP and adjust treatment as needed. (5) Uncontrolled diabetes mellitus: Qualifiers: Diabetes mellitus type: type 2 Glycemic state: with hyperglycemia Qualified Code(s): E11.65 - Type 2 diabetes mellitus with hyperglycemia Code(s): E11.65 - Type 2 diabetes mellitus with hyperglycemia Status: Chronic Assessment and Plan: Hgb A1c is 13.6. He tells me he stopped taking his insulin about 1 year ago and does not go to the doctor. He tells me he recently started checking his blood sugars again 2 days ago but cannot recall how high they were. Admits he doesn't know what his blood sugars should even be. I provided some diabetes education and he will benefit from seeing DM educator. Have initiated a basal-bolus insulin regimen; increased today to help optimize tight glycemic control for wound healing. (6) Sepsis: Qualifiers: Sepsis type: sepsis due to unspecified organism Sepsis acute organ dysfunction status: without acute organ dysfunction Qualified Code(s): A41.9 - Sepsis, unspecified organism Code(s): A41.9 - Sepsis, unspecified organism Status: Acute Assessment and Plan: Evident by tachyc
[2020-01-16 11:34] LABS: Vancomycin Trough 10.3 ug/mL (10.0-20.0)
[2020-01-16] MEDS: MAGNESIUM OXIDE 200 MG TABLET PO ×2 (11:58→21:56)
[2020-01-16] MEDS: FAMOTIDINE 20 MG TABLET PO ×2 (11:58→21:57)
[2020-01-16] MEDS: ASPIRIN 81 MG CHEWABLE TABLET PO (11:58)
[2020-01-16 12:33] LABS: Glucose Point of Care 216 (65-105)
[2020-01-16 17:05] LABS: Glucose Point of Care 119 (65-105)
[2020-01-16] MEDS: INSULIN GLARGINE (*BKC) 100 UNITS/ML 22 UNITS SUB-Q (21:57)
[2020-01-16 22:32] LABS: Glucose Point of Care 253 (65-105)
[2020-01-17] VITALS (13 sets, daily range): BP systolic 120–146; BP diastolic 78–101; PULSE 66–101; RESP 18–24; TEMP 36.5–37.2; O2SAT 94–100; BMI 28.5
[2020-01-17] MEDS: hydrALAZINE HCL 20 MG/ML VIAL 10 MG IV PUSH (01:31)
[2020-01-17 06:35] LABS: Anion Gap 7 mmol/L (8-16); Blood Urea Nitrogen 16 mg/dL (9-20); Calcium 8.6 mg/dL (8.4-10.2); Carbon Dioxide 23 mmol/L (22-30); Chloride 102 mmol/L (98-107); Estimated CRCL calculation 106 ml/min; Estimated Glomerular Filt Rate > 60; Glucose 261 mg/dL (75-110); Magnesium 1.8 mg/dL (1.6-2.3); Potassium 3.6 mmol/L (3.4-5.0); Sodium 132 mmol/L (137-145)
[2020-01-17 07:46] LABS: Basophils Absolute Auto 0.1 K/mm3 (0.0-0.1); Basophils Percent Auto 0.6 % (0.2-1.2); Eosinophils Absolute Auto 0.2 K/mm3 (0-0.3); Eosinophils Percent Auto 1.6 % (0-4.4); Hemoglobin 15.8 g/dL (14.0-18.0); Immature Granulocyte Percent A 0.8 % (0-0.5); Lymphocytes Absolute Auto 3.16 K/mm3 (0.9-3.2); Mean Corpuscular HGB Conc 34.3 g/dl (32-36); Mean Corpuscular Hemoglobin 30.1 pg (26-34); Mean Corpuscular Volume 87.6 fl (80-100); Mean Platelet Volume 10.9 fl (7.4-10.4); Monocytes Absolute Auto 1.1 K/mm3 (0.1-0.6); Platelet Count Result 364 k/mm3 (150-375); Red Blood Count 5.25 M/mm3 (4.6-6.20); Red Cell Distribution Width 12.2 % (11.5-14.5); White Blood Count 12.6 K/mm3 (4.5-10.0)
[2020-01-17 07:49] LABS: Glucose Point of Care 253 (65-105)
[2020-01-17] MEDS: INSULIN ASPART (*BKC) 100 UNITS/ML 14 UNITS SUB-Q ×2 (08:20→11:53)
[2020-01-17] MEDS: INSULIN ASPART (*BKC) 100 UNITS/ML SUB-Q ×2 (08:21→11:53)
[2020-01-17] MEDS: MAGNESIUM OXIDE 200 MG TABLET PO ×2 (08:28→20:45)
[2020-01-17] MEDS: METOPROLOL SUCCINATE EXT REL 50 MG TABCR PO (08:28)
[2020-01-17] MEDS: ASPIRIN 81 MG CHEWABLE TABLET PO (08:28)
[2020-01-17] MEDS: FAMOTIDINE 20 MG TABLET PO ×2 (08:29→20:45)
--- NOTE | 2020-01-17 09:33 | PM.IMPN ---
Subjective Date/time seen: 01/17/20 0830 Objective Data Vital Signs Vital Signs: Vital Signs - 24 hr 01/16/20 10:00 01/16/20 12:00 01/16/20 14:01 Temperature 98.3 F 98.2 F Pulse Rate 90 99 96 Respiratory Rate 16 17 Blood Pressure 126/56 L 141/96 H Pulse Oximetry 95 97 01/16/20 16:00 01/16/20 18:00 01/16/20 20:00 Temperature 98.2 F 97.4 F L Pulse Rate 104 H 74 110 H Respiratory Rate 17 20 Blood Pressure 122/89 144/99 H Pulse Oximetry 92 97 01/17/20 00:00 01/17/20 01:32 01/17/20 04:00 Temperature 98.9 F Pulse Rate 101 H 97 Respiratory Rate 18 Blood Pressure 139/96 H 146/101 H Pulse Oximetry 100 01/17/20 06:00 01/17/20 08:28 Temperature 97.7 F Pulse Rate 98 98 Respiratory Rate 20 Blood Pressure 136/95 H Pulse Oximetry 94 Intake/Output Intake/Output: Intake & Output 01/14/20 01/15/20 01/16/20 01/17/20 23:59 23:59 23:59 23:59 Intake Total 2850 2810 2300 940 Output Total 200 1275 1650 Balance 2650 1535 650 940 Meds/Results Medications: Active Medications Generic Name Dose Route Start Last Admin Trade Name Freq PRN Reason Stop Dose Admin Hydrocodone Bitart/Acetaminophen 2 tab 01/14/20 19:29 01/16/20 05:42 [place] 5-325 Mg PO 2 tab Q4H PRN Administration Pain Rated 7-10 Aspirin 81 mg 01/15/20 08:00 01/17/20 08:28 Aspirin Chewable PO 81 mg DAILY@0800 JOHANA Administration Dextrose 12.5 gm 01/14/20 20:20 Dextrose 50% Syringe IV PUSH PRN PRN Hypoglycemia Protocol Famotidine 20 mg 01/16/20 09:00 01/17/20 08:29 Pepcid PO 20 mg Q12HR JOHANA Administration Glucagon 1 mg 01/14/20 20:20 Glucagon For Inj IM PRN PRN Hypoglycemia Protocol Glucose 15 gm 01/14/20 20:20 Glutose 15 PO PRN PRN Hypoglycemia Protocol Hydralazine HCl 10 mg 01/15/20 11:34 01/17/20 01:31 Apresoline Hcl Inj IV PUSH 10 mg Q8H PRN Administration Blood Pressure - High Dextrose 1,000 mls @ 100 mls/hr 01/14/20 20:20 Dextrose 5% 1,000 Ml IVPB PRN PRN Hypoglycemia Protocol Imipenem/Cilastatin Sodium 500 mg in 100 mls @ 300 mls/hr 01/15/20 12:00 01/17/20 06:58 Primaxin 500 Mg/D5w 100 Ml IVPB Infused Q6H JOHANA Infusion Vancomycin HCl 1,750 mg in 500 mls @ 250 mls/hr 01/17/20 00:00 01/17/20 02:40 Vancomycin 1,750 Mg/D5w 500 Ml IVPB Infused Q12H JOHANA Infusion Insulin Aspart 3 - 6 units 01/16/20 08:00 01/17/20 08:21 Novolog SUB-Q 4 units TIDWM JOHANA Administration Protocol Insulin Aspart 14 units 01/17/20 08:00 01/17/20 08:20 Novolog SUB-Q 14 units TIDWM JOHANA Administration Insulin Glargine 25 units 01/17/20 21:00 Lantus SUB-Q HS JOHANA Magnesium Oxide 200 mg 01/16/20 09:00 01/17/20 08:28 Mag-Ox PO 200 mg Q12HR JOHANA Administration Metoprolol Succinate 50 mg 01/15/20 13:20 01/17/20 08:28 Toprol Xl PO 50 mg QAM JOHANA Administration Nitroglycerin 0.4 mg 01/14/20 19:31 Nitrostat Subl 0.4 Mg (1/150) SUBLINGUAL Q5MIN PRN Chest Pain Ondansetron HCl 4 mg 01/14/20 19:29 Zofran Inj IV PUSH Q4H PRN Nausea Radiology Results: ITS Impressions Chest CTA 01/14/20 18:07 IMPRESSION: No evidence of pulmonary embolism Cardiomegaly, congestive heart failure, mild pleural effusions Soft Tissue Neck CT 01/14/20 18:07 IMPRESSION: 1. Large ulceration, phlegmon superficial to the left masseter, parotid, zygomatic arch, probably with multiple small pockets of necrosis/abscess. 2. Mild reactive left internal jugular lymphadenopathy. 3. Incompletely imaged mediastinal lymphadenopathy, correlate with dedicated CT report. Chest X-Ray 01/16/20 08:05 Impression: 1: Cardiomegaly with progression of interstitial edema. Labs Labs: Laboratory Results - last 24 hr 01/16/20 01/16/20 01/16/20 10:56 11:56 16:59 WBC RBC Hgb Hct MCV
[2020-01-17 11:59] LABS: Glucose Point of Care 256 (65-105)
--- NOTE | 2020-01-17 13:56 | PM.PNCARD ---
Progress Note: A&P Assessment and Plan (1) Elevated troponin: Code(s): R79.89 - Other specified abnormal findings of blood chemistry Status: Acute Assessment and Plan: No clinical evidence of acute coronary syndrome. No further cardiac workup is needed. (2) Hypertension: Qualifiers: Hypertension type: unspecified Qualified Code(s): I10 - Essential (primary) hypertension Code(s): I10 - Essential (primary) hypertension Status: Chronic Assessment and Plan: Better controlled. Echo 01/15/2020: Left ventricular chamber dimension is moderately enlarged. Left ventricular systolic function is severely reduced, estimated at 20-25%. Left atrial chamber dimension is moderately enlarged. There is mild mitral valve regurgitation. MR is the result of annular dilation. (3) Systolic dysfunction: Code(s): I51.9 - Heart disease, unspecified Status: Acute Assessment and Plan: Most likely related to his untreated hypertension. Continue Metoprolol succinate. Add losartan 25 mg daily. First dose now. Monitor renal function closely. Additional Plan Plan discussed with Dr. Salter 1405 01/17/2020 Subjective Date/time seen: 01/17/20 13:56 Interval history: Follow up for: Elevated troponin, hypertension, systolic LV dysfunction Date of service: 01/17/2020 Subjective: No chest pain, tightness or pressure. Notes a rare sensation of a pinch. Shortness of breath with exertional activity significantly improved. No dizziness or lightheadedness. Wants to take a shower. Review of Systems Constitutional: Constitutional: Denies difficulty sleeping and Reports fatigue Eyes: Eyes: Denies blurry vision ENT: Reports Normal hearing present and Denies epistaxis Cardiovascular: Cardiovascular: Denies chest pain, Denies rapid heart rate, Reports dyspnea on exertion ( Improved) and Denies orthopnea Respiratory: Respiratory: Reports dyspnea on exertion ( improved) Gastrointestinal: Gastrointestinal: Denies abdominal pain Genitourinary: Genitourinary: Denies hematuria Musculoskeletal: Musculoskeletal: Reports myalgias Integumentary/Breasts: Skin/Breast: Denies unusual bruising Neurologic: Reports Normal hearing present, Denies dizziness and Denies syncope Psychiatric: Psychiatric: Denies anxiety and Denies depression Endocrine: Endocrine: Reports fatigue Hematologic/Lymphatic: Hematologic/Lymphatic: Denies easy bleeding Allergic/Immunologic: Allergic/Immunologic: Reports no additional allergic/immunologic complaints Exam Const: General: no acute distress Other: Somewhat disheveled-appearing sitting on side of bed. Girlfriend at bedside. Comfortable. Cooperative. No distress. HENMT: Other: Dressing is noted over his facial abscess Eyes: Sclera: sclerae normal Pupils: Equal, round and reactive pupils present Neck: Neck: supple Other: carotid pulses are normal there are no audible bruits over the neck Resp: Effort & Inspection: normal respiratory effort and able to speak in complete sentences Auscultation: clear to auscultation bilaterally Cardio: Rate: regular rate and tachycardic Rhythm: regular rhythm Heart sounds: no murmurs GI: GI Palp: Yes Soft to palpation Auscultation: normal bowel sounds Skin: General skin exam: normal color Neuro: Cranial nerves: Yes Equal, round and reactive pupils present Cognition (Neuro): normal cognition Speech: normal speech Extrem: General: normal to inspection and no clubbing, cyanosis or edema Psych: Appearance: disheveled Mental Status: mental status grossly normal Speech and movement: Normal speech and movement present Affect: normal affect Attitude: cooperative Thought content: Yes Normal thought content present Insight: Limited insight present (Psych) Judgement: Fair judgement present (Psych) Objective Data
--- NOTE | 2020-01-17 14:08 | WPDINFPN2 ---
Progress Note: A&P Assessment and Plan (1) Abscess: Code(s): L02.91 - Cutaneous abscess, unspecified Status: Acute Assessment and Plan: NATHANIEL Left facial abscess, due to skin trauma/poorly controlled DM/tobacco. REC Counseled on modifying risk factors. (antibiotic # 4) ancef #1. For surgical intervention at [facility], IV therapy at least until then. Subjective Date/time seen: 01/17/20 14:08 Objective Data Vital Signs Vital Signs: Vital Signs - 24 hr 01/16/20 16:00 01/16/20 18:00 01/16/20 20:00 Temperature 36.8 C 36.3 C L Pulse Rate 104 H 74 110 H Respiratory Rate 17 20 Blood Pressure 122/89 144/99 H Pulse Oximetry 92 97 01/17/20 00:00 01/17/20 01:32 01/17/20 04:00 Temperature 37.2 C Pulse Rate 101 H 97 Respiratory Rate 18 Blood Pressure 139/96 H 146/101 H Pulse Oximetry 100 01/17/20 06:00 01/17/20 08:00 01/17/20 08:28 Temperature 36.5 C Pulse Rate 98 66 98 Respiratory Rate 20 Blood Pressure 136/95 H Pulse Oximetry 94 01/17/20 10:00 Temperature 36.9 C Pulse Rate 89 Respiratory Rate 19 Blood Pressure 129/89 Pulse Oximetry 95 Intake/Output Intake/Output: Intake & Output 01/14/20 01/15/20 01/16/20 01/17/20 23:59 23:59 23:59 23:59 Intake Total 2850 2810 2300 1040 Output Total 200 1275 1650 Balance 2650 9837 513 5319 Meds/Results Medications: Active Medications Generic Name Dose Route Start Last Admin Trade Name Freq PRN Reason Stop Dose Admin Hydrocodone Bitart/Acetaminophen 2 tab 01/14/20 19:29 01/16/20 05:42 [place] 5-325 Mg PO 2 tab Q4H PRN Administration Pain Rated 7-10 Aspirin 81 mg 01/15/20 08:00 01/17/20 08:28 Aspirin Chewable PO 81 mg DAILY@0800 JOHANA Administration Dextrose 12.5 gm 01/14/20 20:20 Dextrose 50% Syringe IV PUSH PRN PRN Hypoglycemia Protocol Famotidine 20 mg 01/16/20 09:00 01/17/20 08:29 Pepcid PO 20 mg Q12HR JOHANA Administration Glucagon 1 mg 01/14/20 20:20 Glucagon For Inj IM PRN PRN Hypoglycemia Protocol Glucose 15 gm 01/14/20 20:20 Glutose 15 PO PRN PRN Hypoglycemia Protocol Hydralazine HCl 10 mg 01/15/20 11:34 01/17/20 01:31 Apresoline Hcl Inj IV PUSH 10 mg Q8H PRN Administration Blood Pressure - High Dextrose 1,000 mls @ 100 mls/hr 01/14/20 20:20 Dextrose 5% 1,000 Ml IVPB PRN PRN Hypoglycemia Protocol Imipenem/Cilastatin Sodium 500 mg in 100 mls @ 300 mls/hr 01/15/20 12:00 01/17/20 13:04 Primaxin 500 Mg/D5w 100 Ml IVPB Infused Q6H JOHANA Infusion Vancomycin HCl 1,750 mg in 500 mls @ 250 mls/hr 01/17/20 00:00 01/17/20 13:03 Vancomycin 1,750 Mg/D5w 500 Ml IVPB 250 mls/hr Q12H JOHANA Administration Insulin Aspart 3 - 6 units 01/16/20 08:00 01/17/20 11:53 Novolog SUB-Q 4 units TIDWM JOHANA Administration Protocol Insulin Aspart 14 units 01/17/20 08:00 01/17/20 11:53 Novolog SUB-Q 14 units TIDWM JOHANA Administration Insulin Glargine 25 units 01/17/20 21:00 Lantus SUB-Q HS JOHANA Magnesium Oxide 200 mg 01/16/20 09:00 01/17/20 08:28 Mag-Ox PO 200 mg Q12HR JOHANA Administration Metoprolol Succinate 50 mg 01/15/20 13:20 01/17/20 08:28 Toprol Xl PO 50 mg QAM JOHANA Administration Nitroglycerin 0.4 mg 01/14/20 19:31 Nitrostat Subl 0.4 Mg (1/150) SUBLINGUAL Q5MIN PRN Chest Pain Ondansetron HCl 4 mg 01/14/20 19:29 Zofran Inj IV PUSH Q4H PRN Nausea Radiology Results: ITS Impressions Chest CTA 01/14/20 18:07 IMPRESSION: No evidence of pulmonary embolism Cardiomegaly, congestive heart failure, mild pleural effusions Soft Tissue Neck CT 01/14/20 18:07 IMPRESSION: 1. Large ulceration, phlegmon superficial to the left masseter, parotid, zygomatic arch, probably with multiple small pockets of necrosis/abscess. 2. Mild reactive left internal jugular lymphadenopathy. 3.
[2020-01-17] MEDS: LOSARTAN POTASSIUM 25 MG TABLET PO (15:49)
[2020-01-17] MEDS: ceFAZolin 2 GM/D5W 50 ML 2 GM/50 ML BAG IVPB ×2 (15:49→20:45)
--- NOTE | 2020-01-17 16:10 | PM.TDS ---
Transfer Discharge Sum: Prov Provider Date of admission: 01/14/20 19:29 Primary care physician: [facility] [employer] [facility] [facility] Admitting clinician: Yusuf Resendez MD Consults: 01/14/20 19:30 Consult to Physician Routine Consulting Provider: Sunday Simon inbound call center representative/MD group to consult: ENT Reason for consultation: facial abscess 01/14/20 19:41 Consult to Physician Routine Consulting Provider: Eric Salter inbound call center representative/MD group to consult: Cardiology 01/15/20 Consult to Physician Routine Consulting Provider: Shamar Francisco inbound call center representative/MD group to consult: Infectious disease Reason for consultation: Facial phlegmon/abscesses, uncontrolled DM DS: Admitting Diagnosis Admitting Diagnosis Admitting Diagnosis: Facial abscess, elevated troponin, heart failure DS: Discharge Diagnosis Discharge Diagnosis (1) Phlegmon: Code(s): L02.91 - Cutaneous abscess, unspecified Status: Acute Assessment and Plan: Date of Service 01/17/20 Mr. Lee is a 49yo M with uncontrolled type 2 diabetes mellitus, uncontrolled hypertension, tobacco and methamphetamine abuse who presented to the ED for evaluation left facial wound/abscess. He describes that the wound on his left face began around 1 week ago and believes he got an ingrown hair from shaving. He kept popping the pimple and it got significantly worse in the last few days prior to arrival. He denies injecting drugs or other substances into his face. CT shows large ulceration, phlegmon superficial to the left masseter, parotid, zygomatic arch probably with multiple small pockets of necrosis/abscess and surrounding mild reactive lymphadenopathy. He is s/p incision and drainage in the ER 01/14/20. Wound and blood cultures were obtained. He was started on IV vancomycin and imipenem per antibiotic stewardship guidelines. On 01/17/20 he has been evaluated by Infectious Disease, Dr. Francisco, who has deescalated his antibiotic regimen to IV Ancef monotherapy with wound culture growing heavy growth of Staph aureus. On 01/16 blood cultures are pending with no growth to date. Patient meets sepsis criteria with leukocytosis and tachycardia on arrival, suspected source left cheek infection. Troponins were drawn in the ED for complaint of some mild chest pressure and were noted to be minimally elevated with relatively flat profile for which cardiology was consulted. He was evaluated by Cardiology, Dr Salter. Imaging also demonstrated pulmonary edema, pro-BNP 3980, patient clinically appeared to be in heart failure. Echocardiogram 01/15/20 demonstrated reduced left ventricular systolic dysfunction, EF estimated at 20-25%; moderate LV enlargement; moderate left atrial enlargement; mild mitral valve regurgitation. He was started on 50 mg daily metoprolol succinate and 25 mg daily losartan by cardiology for hypertension and LV dysfunction. Blood pressures were significantly elevated on arrival, now well-controlled today 01/16. Patient noted to have Hgb A1c 13.6. He describes he stopped taking his insulin about 1 year ago. Basal-bolus insulin regimen was initiated. Blood sugars still not very well controlled despite increasing insulin doses. Discussed case with Dr America Ambrose, ENT at [place] on 01/16 at 1200 who has agreed to see the patient in consultation but given his significant medical comorbidities, requested patient be admitted to medicine. I discussed the case with Dr Armani Delgado with medicine team at [facility] 01/16 who accepted the patient to his service. There are no beds available today and it has been requested to test the patient for COVID screening while waiting for a bed. COVID testing pending, anticipating COVID results and transfer 01/17. He is hemodynamically stable for transfer on medical floor. Patient presents with left facial wound; CT shows large ulceration, phlegmon superficial to left masseter, parotid, zygomatic arch pro
[2020-01-17 17:34] LABS: Glucose Point of Care 162 (65-105)
[2020-01-17] MEDS: INSULIN ASPART (*BKC) 100 UNITS/ML 10 UNITS SUB-Q (17:54)
[2020-01-17 20:00] LABS: Glucose Point of Care 271 (65-105)
[2020-01-17 20:05] LABS: SARS-CoV-2 RNA PCR Negative
[2020-01-17] MEDS: INSULIN GLARGINE (*BKC) 100 UNITS/ML 25 UNITS SUB-Q (20:49)
--- NOTE | 2020-01-17 21:04 | CONS_ITS ---
DATE OF CONSULTATION: 01/17/2020 REASON FOR CONSULTATION: Facial abscess. HISTORY OF PRESENT ILLNESS: The patient is a 49-year-old male with diabetes mellitus. He has had a decline in recent months with weight loss, fatigue and generalized weakness as well as anorexia. He presented to the hospital on January 13 with purulent drainage from his left cheek of 5 days duration, associated with sensation of swelling and focal pain. He has also been using methamphetamine recently. He was smoking tobacco until the time of admission. On presentation, the patient was found to have a phlegmon and has had bedside debridement performed. Plan now being made for transfer to a tertiary care center for a more definitive I and D. The patient denies fever, chills, sweats, recent antibiotic use, recent immunosuppressant use or prior such episodes or prior facial surgery. Here, he has been given imipenem and vancomycin. FAMILY HISTORY: Not pertinent to his present illness. SOCIAL HISTORY: Quarter pack of cigarettes per day. No alcohol. Methamphetamine as above. Does not work outside the home. Lives locally. PRESENT MEDICATIONS: List reviewed. No immunosuppressants. PAST MEDICAL HISTORY: Diabetes mellitus type 2. Medication nonadherence. Hypertension, obesity, left wrist surgery. REVIEW OF SYSTEMS: Vague dysphagia, otherwise ENT, constitutional, GI respiratory, neurologic negative. PHYSICAL EXAMINATION: GENERAL: This is a middle-aged male, who appears older than his actual age. No acute distress. VITAL SIGNS: He has been afebrile since arrival, 89, 19, 95%, 129/89. He is on room air. SKIN: No generalized rashes. Warm and dry. EENT: Conjunctivae are normal. Pupils equal, round, and reactive to light and accommodation. He has markedly decayed first molar on the left upper side and poor dentition elsewhere with several extracted teeth on the left lower jaw. He has no asymmetry to the gums and the cheek is intact. He has no thrush. The oropharynx is widely open. Over the left cheek, he has swelling and redness. Skin breakdown and nonfoul smelling, discharge. NECK: No masses, thyromegaly, asymmetry, meningismus. LUNGS: Clear to auscultation and percussion. CARDIAC: Regular rate and rhythm. No murmur, or gallop. Carotids are 2+. He has no diminution in dorsalis pedis or radial pulses. ABDOMEN: Morbidly obese, nontender. No mass. No organomegaly. EXTREMITIES: No clubbing, cyanosis, edema. NEUROLOGIC: Awake, alert, oriented, appropriate. Cranial nerves intact. LABORATORY DATA: Wound culture has grown oxacillin susceptible Staph aureus, KRYSTAL for oxacillin equals 0.5. Blood cultures, no growth after 3 days incubation. White blood cell count recently 16.8 up to 18.5, the following day down to 12.6 now, hemoglobin 15.8, platelets are 364. Differential was minimal left shift. His blood gases 7.49, 29, 64 on room air. Chemistry initially with sodium 129, now 132, and his glucose 540 initially now 261. Hemoglobin A1c 13.6%. His elevated BNP, alkaline phosphatase, low albumin. Urinalysis 3+ glucose, otherwise normal. Urine drug screen as above. RADIOLOGY: CT of the face and neck, phlegmon over the left manager willow, parotid, zygomatic arch, reactive left IJ lymphadenopathy. ASSESSMENT: 1. Oxacillin susceptible Staph aureus facial abscess. 2. Illicit drug use. 3. Tobacco use. 4. Diabetes mellitus, very poorly controlled at least in part due to medication nonadherence. RECOMMENDATIONS: 1. Change to Ancef. 2. Follow up on blood cultures. 3. He will need a surgical intervention and I understand this will be accomplished at [facility]. 4. IV therapy at least until he is postop. 5. I also counseled him about correcting his risk factors.
[2020-01-18] VITALS (13 sets, daily range): BP systolic 118–148; BP diastolic 81–95; PULSE 75–111; RESP 18–20; TEMP 36.1–36.6; O2SAT 97–99
[2020-01-18] MEDS: ceFAZolin 2 GM/D5W 50 ML 2 GM/50 ML BAG IVPB ×2 (06:03→13:36)
[2020-01-18 06:28] LABS: Basophils Absolute Auto 0.1 K/mm3 (0.0-0.1); Basophils Percent Auto 0.6 % (0.2-1.2); Eosinophils Absolute Auto 0.2 K/mm3 (0-0.3); Eosinophils Percent Auto 1.4 % (0-4.4); Hematocrit 43.2 % (42.0-52.0); Immature Granulocyte Absolute 0.14 K/mm3 (0.00-0.031); Lymphocytes Absolute Auto 3.15 K/mm3 (0.9-3.2); Lymphocytes Percent Auto 21.9 % (18.3-44.2); Mean Corpuscular HGB Conc 34.7 g/dl (32-36); Mean Corpuscular Volume 86.4 fl (80-100); Mean Platelet Volume 10.5 fl (7.4-10.4); Monocytes Absolute Auto 1.2 K/mm3 (0.1-0.6); Monocytes Percent Auto 8.6 % (2.6-8.5); Neutrophils Absolute Auto 9.6 K/mm3 (1.3-6.7); Neutrophils Percent Auto 66.5 % (45.5-73.1); Platelet Count Result 361 k/mm3 (150-375); Red Cell Distribution Width 11.9 % (11.5-14.5); White Blood Count 14.4 K/mm3 (4.5-10.0)
[2020-01-18 06:41] LABS: Anion Gap 6 mmol/L (8-16); Blood Urea Nitrogen 15 mg/dL (9-20); Calcium 8.8 mg/dL (8.4-10.2); Carbon Dioxide 23 mmol/L (22-30); Chloride 103 mmol/L (98-107); Estimated CRCL calculation 94 ml/min; Estimated Glomerular Filt Rate > 60; Glucose 297 mg/dL (75-110); Magnesium 1.9 mg/dL (1.6-2.3); Potassium 3.9 mmol/L (3.4-5.0); Sodium 132 mmol/L (137-145)
[2020-01-18 07:47] LABS: Glucose Point of Care 249 (65-105)
[2020-01-18] MEDS: INSULIN ASPART (*BKC) 100 UNITS/ML SUB-Q ×2 (08:03→12:29)
[2020-01-18] MEDS: INSULIN ASPART (*BKC) 100 UNITS/ML 17 UNITS SUB-Q (08:03)
[2020-01-18] MEDS: FAMOTIDINE 20 MG TABLET PO (08:06)
[2020-01-18] MEDS: ASPIRIN 81 MG CHEWABLE TABLET PO (08:06)
[2020-01-18] MEDS: LOSARTAN POTASSIUM 25 MG TABLET PO (08:07)
[2020-01-18] MEDS: METOPROLOL SUCCINATE EXT REL 50 MG TABCR PO (08:07)
[2020-01-18] MEDS: MAGNESIUM OXIDE 200 MG TABLET PO (08:07)
--- NOTE | 2020-01-18 11:05 | PM.IMPN ---
Progress Note: A&P Assessment and Plan (1) Phlegmon: Code(s): L02.91 - Cutaneous abscess, unspecified Status: Acute Assessment and Plan: ------ phlegmon/ possible abscess seen on CT. Previous provider discussed case with Dr America Ambrose, ENT at [facility] on 01/16 at 1200 who has agreed to see the patient in consultation but given his significant medical comorbidities, requested patient be admitted to medicine. she also discussed with Dr Armani Delgado with medicine team at [facility] 01/16 who accepted the patient to his service. he is COVID-19 positive. I called this morning and once they are still waiting on a bed. White blood cell count up a bit 14.4 and has been afebrile. continue cephazolin. Staph aureus growing high and the wound culture. No growth today on the blood cultures so far. (2) Elevated troponin: Code(s): R79.89 - Other specified abnormal findings of blood chemistry Status: Acute Assessment and Plan: ----- Patient had elevated Troponins. Could be related to methamphetamine use vs. CHF. no ACS suspected And the patient has been seen by Cardiology who does not recommend any further cardiac workup. (3) Acute CHF: Qualifiers: Heart failure type: unspecified Qualified Code(s): I50.9 - Heart failure, unspecified Code(s): I50.9 - Heart failure, unspecified Status: Suspected Assessment and Plan: -----BNP elevated at 3980 with pulmonary vascular congestion on imaging on admission. Echocardiogram shows significantly reduced systolic function, EF 20-25%. Suspect this could be related to his methamphetamine use. he appears euvolemic on exam now. Continue metoprolol 50 mg daily and Cardiology added losartan. (4) Hypertension: Qualifiers: Hypertension type: unspecified Qualified Code(s): I10 - Essential (primary) hypertension Code(s): I10 - Essential (primary) hypertension Status: Chronic Assessment and Plan: ---- Last blood pressure 118/81. Continue metoprolol and losartan (5) Uncontrolled diabetes mellitus: Qualifiers: Diabetes mellitus type: type 2 Glycemic state: with hyperglycemia Qualified Code(s): E11.65 - Type 2 diabetes mellitus with hyperglycemia Code(s): E11.65 - Type 2 diabetes mellitus with hyperglycemia Status: Chronic Assessment and Plan: -----Hgb A1c is 13.6. He tells me he stopped taking his insulin about 1 year ago and does not go to the doctor. He admits he doesn't know what his blood sugars should even be. Previous provider provided some diabetes education and DM educator has been consulted.Last glucose 249. Continue with novolog 14u with meals and 30u of lantus. Adjust as needed. (6) Sepsis: Qualifiers: Sepsis acute organ dysfunction status: without acute organ dysfunction Sepsis type: sepsis due to unspecified organism Qualified Code(s): A41.9 - Sepsis, unspecified organism Code(s): A41.9 - Sepsis, unspecified organism Status: Acute Assessment and Plan: -----Evident on admission by tachycardia, tachypnea, and leukocytosis. Suspected source is the facial phlegmon. Continue IV antibiotics and tx as stated above. (7) Tobacco dependence: Code(s): F17.200 - Nicotine dependence, unspecified, uncomplicated Status: Chronic Assessment and Plan: -----Smoking cessation advised. (8) Methamphetamine abuse: Code(s): F15.10 - Other stimulant abuse, uncomplicated Status: Acute Assessment and Plan: -----I counseled the patient regarding methamphetamine abuse. Reports using crystal methamphetamine by snorting at least once weekly. Tells me he did not inject drugs in his face. Time Spent With Patient Time with patient: 25 - 35 minutes Subjective Date/time seen: 01/18/20 11:05 Interval history: Pt is a 49-year-old male here for cutaneous abscess of the left cheek. Patient
--- NOTE | 2020-01-18 11:41 | WPDINFPN2 ---
Progress Note: A&P Assessment and Plan (1) Abscess: Code(s): L02.91 - Cutaneous abscess, unspecified Status: Acute Assessment and Plan: 1. NATHANIEL Left facial abscess, due to below, exam slightly improved 2. poorly controlled DM 3. tobacco. 4. CoVid assay NR 01/16 5. Dyspnea, normal O2 sat and exam currently, BCs remain ng REC (antibiotic # 5) ancef #2. For surgical intervention at [facility], IV therapy at least until then. Subjective Date/time seen: 01/18/20 11:41 Interval history: dyspnea at times Exam Narrative: Exam Narrative: afebrile Const: General: no acute distress HENMT: Other: edema somewhat less over L maxilla, as is amount of drainage, no sinus tracts Eyes: General: appearance normal, both eyes and all related structures EOM: EOMs intact bilaterally Neck: Neck: supple and no JVD Other: no trachea deviation contour normal no edema Resp: Effort & Inspection: normal respiratory effort Auscultation: clear to auscultation bilaterally Cardio: Rate: regular rate Rhythm: regular rhythm Heart sounds: no gallops and no murmurs Objective Data Vital Signs Vital Signs: Vital Signs - 24 hr 01/17/20 12:00 01/17/20 14:00 01/17/20 16:00 Temperature 37.2 C Pulse Rate 91 98 74 Respiratory Rate 24 H Blood Pressure 130/87 Pulse Oximetry 98 01/17/20 18:00 01/17/20 20:00 01/17/20 22:00 Temperature 37.2 C 37.2 C Pulse Rate 92 88 88 Respiratory Rate 19 18 18 Blood Pressure 125/85 120/78 Pulse Oximetry 99 99 99 01/18/20 00:00 01/18/20 02:00 01/18/20 04:00 Temperature 36.1 C L Pulse Rate 96 96 77 Respiratory Rate 18 Blood Pressure 125/86 Pulse Oximetry 98 01/18/20 05:34 01/18/20 08:00 01/18/20 08:07 Temperature 36.2 C L Pulse Rate 97 102 H 94 Respiratory Rate 20 Blood Pressure 118/81 Pulse Oximetry 97 01/18/20 10:00 01/18/20 10:30 Temperature 36.3 C L Pulse Rate 89 Respiratory Rate 20 Blood Pressure 130/92 H Pulse Oximetry 98 97 Intake/Output Intake/Output: Intake & Output 01/15/20 01/16/20 01/17/20 01/18/20 23:59 23:59 23:59 23:59 Intake Total 2810 2300 1620 410 Output Total 1275 1650 450 Balance 0403 976 0092 410 Meds/Results Medications: Active Medications Generic Name Dose Route Start Last Admin Trade Name Freq PRN Reason Stop Dose Admin Hydrocodone Bitart/Acetaminophen 2 tab 01/14/20 19:29 01/16/20 05:42 [place] 5-325 Mg PO 2 tab Q4H PRN Administration Pain Rated 7-10 Albuterol 2 puff 01/18/20 11:27 Proventil Hfa INHALATION QIDRT PRN Shortness Of Breath Aspirin 81 mg 01/15/20 08:00 01/18/20 08:06 Aspirin Chewable PO 81 mg DAILY@0800 JOHANA Administration Dextrose 12.5 gm 01/14/20 20:20 Dextrose 50% Syringe IV PUSH PRN PRN Hypoglycemia Protocol Famotidine 20 mg 01/16/20 09:00 01/18/20 08:06 Pepcid PO 20 mg Q12HR JOHANA Administration Glucagon 1 mg 01/14/20 20:20 Glucagon For Inj IM PRN PRN Hypoglycemia Protocol Glucose 15 gm 01/14/20 20:20 Glutose 15 PO PRN PRN Hypoglycemia Protocol Dextrose 1,000 mls @ 100 mls/hr 01/14/20 20:20 Dextrose 5% 1,000 Ml IVPB PRN PRN Hypoglycemia Protocol Cefazolin Sodium 2 gm in 50 mls @ 100 mls/hr 01/17/20 14:00 01/18/20 06:35 Ancef 2 Gm/D5w 50 Ml IVPB Infused Q8HR JOHANA Infusion Insulin Aspart 3 - 6 units 01/16/20 08:00 01/18/20 08:03 Novolog SUB-Q 3 units TIDWM JOHANA Administration Protocol Insulin Aspart 12 units 01/18/20 12:00 Novolog SUB-Q TIDWM JOHANA Insulin Glargine 30 units 01/18/20 21:00 Lantus SUB-Q HS JOHANA Losartan Potassium 25 mg 01/17/20 14:20 01/18/20 08:07 Cozaar PO 25 mg QAM JOHANA Administration Magnesium Oxide 200 mg 01/16/20 09:00 01/18/20 08:07 Mag-Ox PO 200 mg Q12HR JOHANA Administration Metoprolol Succinate 50 mg 01/15/20 13:20 01/18/20 08:07 Toprol Xl
--- NOTE | 2020-01-18 12:03 | PM.PNCARD ---
Progress Note: A&P Assessment and Plan (1) Cardiomyopathy: Code(s): I42.9 - Cardiomyopathy, unspecified Status: Acute Assessment and Plan: New onset cardiomyopathy. Echo 01/15/2020: Left ventricular chamber dimension is moderately enlarged. Left ventricular systolic function is severely reduced, estimated at 20-25%. Left atrial chamber dimension is moderately enlarged. There is mild mitral valve regurgitation. Tolerating metoprolol and losartan. Counseled pt re: his CM, med tx. Rec OPT FU. (2) Heart failure: Code(s): I50.9 - Heart failure, unspecified Status: Acute Assessment and Plan: CXR 01/15 showed worsening CHF and pt is 6+ liters positive since admission. Prob mildy volume overloaded; will start po Lasix. (3) Hypertension: Qualifiers: Hypertension type: unspecified Qualified Code(s): I10 - Essential (primary) hypertension Code(s): I10 - Essential (primary) hypertension Status: Chronic Assessment and Plan: Better controlled. (4) Elevated troponin: Code(s): R79.89 - Other specified abnormal findings of blood chemistry Status: Acute Assessment and Plan: Low level elevation. No clinical evidence of acute coronary syndrome. No further cardiac workup is needed. (5) Abscess: Code(s): L02.91 - Cutaneous abscess, unspecified Status: Acute Assessment and Plan: Waiting for a bed at [facility]. ON antibiotics. (6) Phlebitis: Code(s): I80.9 - Phlebitis and thrombophlebitis of unspecified site Status: Acute Assessment and Plan: Left forearm, prob fr old IV. Symptomatic tx. Subjective Date/time seen: 01/18/20 12:03 Interval history: Follow up for: Elevated troponin ( 0.054), hypertension, systolic LV dysfunction With EF of 20-25%. Admitted with a left facial/pharyngeal abscess. COVID negative. History of smoking and methamphetamine use. Date of visit: 01/17/2020 Subjective: No chest pain, tightness or pressure. Notes a rare sensation of a pinch. Shortness of breath with exertional activity significantly improved. No dizziness or lightheadedness. Wants to take a shower. Date of service: 01/18/2020 Pt couldn't sleep, craving cigarettes. Also intermittently SOB/OMER walking around room. Eating OK. Still waiting on a bed at [facility]. Review of Systems Constitutional: Constitutional: Reports fatigue ENT: Reports dysphagia (Hurts but eating OK.) and Denies epistaxis Cardiovascular: Cardiovascular: Denies chest pain, Denies pedal edema and Denies palpitations Respiratory: Respiratory: Denies cough, Reports dyspnea and Reports dyspnea on exertion Gastrointestinal: Gastrointestinal: Denies abdominal pain Genitourinary: Genitourinary: Denies dysuria Musculoskeletal: Musculoskeletal: Denies back pain Integumentary/Breasts: Skin/Breast: Reports erythema (Erythema and pain at an old IV site left forearm) Neurologic: Reports system reviewed and no additional complaints, except as documented Psychiatric: Psychiatric: Reports no additional psychiatric complaints Exam Const: General: comfortable Other: Disheveled middle-aged make sleeping supine on my arrival, awakens, polite and cooperative. HENMT: General nose exam: no epistaxis Mouth: Yes moist mucous membranes Eyes: EOM: EOMs intact bilaterally Neck: Neck: supple Thyroid: thyroid normal Resp: Effort & Inspection: normal respiratory effort Auscultation: rales (Few rales RLL) Cardio: Rate: regular rate Rhythm: regular rhythm Heart sounds: Gallop heart sound present and no murmurs Skin: Lesions: lesion noted (phlebitis left forearm, left cheek bandaged.) Wounds: wounds noted Neuro: Speech: normal speech Extrem: General: no edema
[2020-01-18] MEDS: INSULIN ASPART (*BKC) 100 UNITS/ML 12 UNITS SUB-Q (12:29)
[2020-01-18 12:36] LABS: Glucose Point of Care 205 (65-105)
[2020-01-18] MEDS: FUROSEMIDE 40 MG TABLET PO (13:36)
--- NOTE | 2020-01-18 20:12 | PC.NURSE ---
Discharged per ambulance to [facility] Rn at [facility] notified that pt is just now leaving.
== END 2020-01-18 20:15 | disposition short-term general hospital (02) | DRG 720 ==
LOC: ANHED 19:30 → ANHIMU 23:41 → ANH2MED 01-17 12:47 → ANHIMU 01-19 15:27
PROVIDERS: Emergency Medicine Emergency Medical Services; Physician Assistant; Admitting Provider Family Medicine; Emergency Provider Emergency Medicine; Visit Provider Physician Assistant
DX: A41.01 Sepsis due to Methicillin susceptible Staphylococcus aureus (principal); L02.01 Cutaneous abscess of face; Z20.828 Contact with and (suspected) exposure to other viral communicable diseases; E11.65 Type 2 diabetes mellitus with hyperglycemia; F17.210 Nicotine dependence, cigarettes, uncomplicated; F15.10 Other stimulant abuse, uncomplicated; I11.0 Hypertensive heart disease with heart failure; I50.9 Heart failure, unspecified; I42.9 Cardiomyopathy, unspecified; R79.89 Other specified abnormal findings of blood chemistry; E66.9 Obesity, unspecified; Z68.28 Body mass index [BMI] 28.0-28.9, adult; Z91.14 Patient's other noncompliance with medication regimen
CPT/HCPCS: 10061; 36415; 36600; 70490; 71045; 71275; 80048; 80053; 80061; 80202; 80307; 81001; 82010; 82375; 82805; 83036; 83050; 83605; 83735; 83880; 84443; 84484; 85025; 85610; 85730; 87040; 87070; 87075; 87147; 87186; 87205; 87635; 93005; 93306; 96361; 96365; 96366; 96367; 96368; 96375; 96376; 99285; A9270; C9803; J0131; J0360; J0690; J0743; J1815; J1940; J2060; J2270; J3370; J7030; J7120; Q9967; U0003

== ENCOUNTER 2021-05-26 17:50 | Inpatient (IN) | payer BC, SELFPAY ==
[2021-05-26] VITALS (17 sets, daily range): BP systolic 101–189; BP diastolic 75–147; PULSE 92–129; RESP 16–41; TEMP 36.1–38.6; O2SAT 83–100; BMI 28.6
--- NOTE | ~2021-05-26 | XR_ITS ---
EXAMINATION: XR ribs LT 2V w CXR 2V INDICATION: Rib pain after fall TECHNIQUE: Frontal and lateral views of the chest and 3 views of the left ribs were obtained. COMPARISON: 01/16/2020 FINDINGS: Cardiomegaly is noted. There are mild perihilar and interstitial opacities. Trace pleural e ffusions are noted. There is no pneumothorax. There is mild thoracic spondylosis. No displaced rib fr acture is identified. IMPRESSION: 1. No displaced rib fracture identified. 2. Cardiomegaly with mild pulmonary edema. Reviewed, dictated and finalized at location [facility]. [facility]TER
--- NOTE | ~2021-05-26 | CT_ITS ---
EXAMINATION: CTA chest PE abdomen pel DATE: 05/26/2021 19:37 INDICATION: Shortness of breath and left-sided pain after fall TECHNIQUE: Computed tomography angiography (CTA) of the chest was performed with 100 mL Omnipaque-350 intravenous contrast timed to evaluate the pulmonary arteries. Subsequent postcontrast images of the abdomen and pelvis are obtained. Coronal maximum intensity projection 3D-reconstructions were create d by the technologist. The dose-length product (DLP) was 1111.41 mGy-cm. Automated exposure control a nd iterative reconstruction technique were employed. COMPARISON: 01/14/2020 FINDINGS: CTA CHEST: There are small pleural effusions. Cardiomegaly is noted. There is chronic mediastinal and bilateral hilar lymphadenopathy. There appear to be mild interlobular septal thickening and minimal interstitial opacities.. ABDOMEN/PELVIS CT: The liver, spleen, pancreas, gallbladder, and adrenal glands are normal. Cysts of the kidneys measure up to 9 mm on the right. No pathologically enlarged abdominal or pelvic lymph nod es are identified. There is calcified atherosclerosis of the aorta and many of the other arteries. Th ere is no free intraperitoneal gas or evidence of bowel obstruction. A moderate volume of colonic sto ol is present. There is severe lumbar spondylosis at L5-S1. IMPRESSION: 1. Cardiomegaly with possible mild pulmonary edema. 2. Chronic mediastinal and bilateral hilar lymphadenopathy, possibly reactive. Reviewed, dictated and finalized at location [facility]. 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
--- NOTE | 2021-05-26 18:16 | ECG_ITS ---
Measurements Intervals [place] Rate: 125 P: 51 [place]: 156 QRS: 83 QRSD: 122 T: 68 QT: 316 QTc: 457 Interpretive Statements SINUS TACHYCARDIA INTRAVENTRICULAR CONDUCTION DELAY DELAYED PRECORDIAL R/S TRANSITION LEFT VENTRICULAR HYPERTROPHY WITH ST-T CHANGE ST ELEVATION IN ANTERIOR LEADS- PROBABLY EARLY REPOLARIZATION BASELINE WANDER- V1-V2 ABNORMAL ECG Electronically Signed On 05-26-2021 20:12:41 DROSS SKIMMER by Dave Rowley D.O.
[2021-05-26 18:28] LABS: Hematocrit 47.4 % (42.0-52.0); Hemoglobin 16.3 g/dL (14.0-18.0); Mean Corpuscular HGB Conc 34.4 g/dl (32-36); Mean Corpuscular Hemoglobin 30.9 pg (26-34); Mean Corpuscular Volume 89.9 fl (80-100); Mean Platelet Volume 10.4 fl (7.4-10.4); Platelet Count Result 213 k/mm3 (150-375); Red Blood Count 5.27 M/mm3 (4.6-6.20); Red Cell Distribution Width 12.3 % (11.5-14.5); White Blood Count 10.2 K/mm3 (4.5-10.0)
[2021-05-26 18:39] LABS: Alanine Aminotransferase 20 U/L (4-50); Albumin Level 3.7 g/dL (3.5-5.1); Alkaline Phosphatase 113 U/L (38-126); Anion Gap 12 mmol/L (8-16); Aspartate Amino Transferase 28 U/L (17-59); Bilirubin,Total 0.5 mg/dL (0.2-1.3); Blood Urea Nitrogen 19 mg/dL (9-20); Calcium 8.6 mg/dL (8.4-10.2); Carbon Dioxide 22 mmol/L (22-30); Chloride 94 mmol/L (98-107); Estimated CRCL calculation 67 ml/min; Estimated Glomerular Filt Rate > 60; Glucose 388 mg/dL (65-110); Lipase 45 U/L (23-300); Potassium 4.5 mmol/L (3.4-5.0); Sodium 128 mmol/L (137-145)
[2021-05-26 18:43] LABS: INR 1.1; Prothrombin Time 14.2 Seconds (11.1-14.7)
[2021-05-26 18:44] LABS: Partial Thromboplastin Time 33.5 SECONDS (22.3-36.8)
[2021-05-26 18:54] LABS: Lymphocytes Absolute Manual 2.24 K/mm3 (1.1-4.5); Monocytes Absolute Manual 0.61 K/mm3 (0.1-0.90); Monocytes Percent Manual 6 % (3-9); Neutrophils Percent Manual 72 % (46-73); Total Cells Counted 100
[2021-05-26 18:55] LABS: Platelet Estimate Adequate (Adequate)
[2021-05-26 18:58] LABS: Troponin I 0.141 ng/mL (0.000-0.034)
--- NOTE | 2021-05-26 18:58 | ED.GENADULT ---
HPI - General Adult General Chief complaint: Fall Stated complaint: left sided rib pain Time Seen by Provider: 05/26/21 18:06 Source: patient Mode of arrival: ambulatory Limitations: no limitations History of Present Illness HPI narrative: Patient presents for evaluation of shortness of breath. He indicates that he fell out of a truck bed on Friday of this week. His left ribs fell on a ladder which was laying on the ground. He did not hit his head nor did he have a LOC. He states he had pain in left lateral ribs at that time and felt SOB at that time. His SOB improved. Last night he had sudden onset SOB while sitting in a chair. He does not provide me with a definitive answer as to whether he was experiencing chest pain earlier. On my initial evaluation pt exhibited labored breathing and was placed on 2 L O2 per NC. He states since being placed on O2 his SOB has improved. He denies any ETOH use but admits to using methamphetamine, with last use about one week ago. Denies other illicit drugs. He does smoke about 1/2 ppd. He states he has a hx of DM and heart problems but is unable to provide me with any additional details related to his underlying medical problems. On chart review it appears he had an echocardiogram in 2019 that showed left ventricular enlargement with EF of 20-25%. Documentation from cardiology indicated the patient had troponin elevation in the past and patient does have a hx of myocardial infarction. He states that he is only on unknown oral agent(s) to control his DM but he does not check his BS at home. Related Data Home Medications Medication Instructions Recorded Confirmed aspirin 05/26/21 metformin mg 05/26/21 Allergies Allergy/AdvReac Type Severity Reaction Status Date / Time No Known Allergies Allergy Verified 05/26/21 17:50 Review of Systems Review of Systems: CONSTITUTIONAL: Denies fever, chills, or sweats. EYES: Denies visual changes, redness, or discharge. ENT: Denies rhinorrhea, congestion, sore throat, or otalgia. CARDIOVASCULAR: Reports left sided rib pain but denies chest pain per se. Denies palpitations, or edema. RESPIRATORY: Reports SOB. Denies cough GASTROINTESTINAL: Denies abdominal pain, nausea, vomiting, or diarrhea. GENITOURINARY: Denies dysuria or hematuria. SKIN: Denies rash or itching. MUSCULOSKELETAL: Denies back pain, joint pain, or myalgia. NEUROLOGIC: Denies headache, numbness, dizziness, or weakness. PSYCHIATRIC: Denies anxiety or depression. [facility] Past Medical History Medical History Cardiomyopathy Diabetes mellitus Hx of medication noncompliance Hypertension Obesity Surgical History Surgical History History of surgery on left wrist Family History Family History Father Acute myocardial infarction of an acute [place] at age 40. Social History Social History Smoking packs per day: 0.25 Smoking cigarettes per day: 5.0 Smoking status: Light tobacco smoker Tobacco type: cigarettes Second hand tobacco smoke exposure: Yes Alcohol intake: never Substance use: current Substance use type: methamphetamine Gender identity (if verbalized by the patient): Male Spiritual care concerns: No Exam Narrative: GENERAL: Disheveled appearance, visibly uncomfortable but in no apparent distress HEAD: Normocephalic, atraumatic. EYES: PERRLA and EOMI. ENT: Nares clear, no rhinorrhea or epistaxis. Mucous membranes moist. Oropharynx without tonsillar hypertrophy exudate or other lesions. Bilateral TMs pearly see nonbulging NECK: Supple. No adenopathy or masses. No carotid bruits or JVD CHEST: Clear to auscultation. No wheezes rales or rhonchi. RR 30. Tenderness over left anterolateral ribs H
[2021-05-26] MEDS: SODIUM CHLORIDE 0.9% IV 1,000 ML 999 ML IV CONT (19:01)
[2021-05-26] MEDS: INSULIN HUMAN REGULAR (*BKC) 100 UNITS/ML 10 UNITS SUB-Q (19:02)
[2021-05-26] MEDS: MORPHINE SULFATE (*CRX) 2 MG/ML INJ IV PUSH ×2 (19:04→19:45)
[2021-05-26 19:51] LABS: Glucose Point of Care 374 mg/dl (65-105)
--- NOTE | 2021-05-26 20:24 | ECG_ITS ---
Measurements Intervals [place] Rate: 122 P: 54 [place]: 156 QRS: 66 QRSD: 128 T: 86 QT: 328 QTc: 469 Interpretive Statements SINUS TACHYCARDIA INTRAVENTRICULAR CONDUCTION DELAY LEFT VENTRICULAR HYPERTROPHY WITH ST-T CHANGE BORDERLINE ST-T WAVE ABNORMALITY- LAT/HIGH LAT LEADS ABNORMAL ECG Electronically Signed On 05-27-2021 20:12:14 MAINTENANCE CRAFTSMAN by Dave Rowley D.O.
[2021-05-26 20:59] LABS: Glucose Point of Care 349 mg/dl (65-105)
[2021-05-26] MEDS: FUROSEMIDE INJ 40 MG/4 ML VIAL IV PUSH (21:10)
[2021-05-26 21:16] LABS: Barbiturate Screen Urine Negative (Negative); Benzodiazepines Screen Urine Negative (Negative)
[2021-05-26 21:27] LABS: Alveolar/Arterial O2 Gradient 121.1 mmHg; Device NASAL CANNULA; Fractional Inspired Oxygen 32 %; HCO3 ABG 20.9 mEq/l (22.0-26.0); Modified Allen's Test Pass; Oxygen Content ABG 21.5 %vol (16.0-22.0); Oxyhemoglobin 93.4 % THb (90.0-100.0); PCO2 ABG 31.2 mmHg (35.0-45.0); PO2 ABG 70.6 mmHg (80.0-100.0); PO2 FiO2 Ratio Arterial Blood 2.21 %; Site Drawn RIGHT RADIAL; Total Hemoglobin 16.4 g/dL (12.0-18.0); pH ABG 7.443 (7.350-7.450)
[2021-05-26 21:30] LABS: EDCOVIDSCREEN Positive (Negative)
[2021-05-26 21:30] LABS: Add Urine Microscopic? YES; Appearance Urine Clear (Clear); Bilirubin Urine Negative (Negative); Blood Urine Negative (Negative); Color Urine Straw (Yellow); Glucose Urine UA 3+ mg/dL (Negative); Ketones Urine 1+ mg/dL (Negative); Leukocyte Esterase Ur Negative LEU/UL (Negative); Mucus Urine Rare /lpf; Nitrate Urine Negative (Negative); Protein Urine 2+ mg/dL (Negative); RBC Urine 0-2 /hpf (0-2); Urobilinogen Urine Negative mg/dL (<2.0); WBC Urine 0-3 /hpf
[2021-05-26 21:31] LABS: NT Pro B Type Natriuretic Pept 4440 pg/mL (5-100)
[2021-05-26 21:32] LABS: Specific Grav Ur 1.039 (1.001-1.035)
[2021-05-26 21:34] LABS: Troponin I 0.165 ng/mL (0.000-0.034)
[2021-05-26 21:44] LABS: Thyroid Stimulating Hormone 0.653 uIU/mL (0.465-4.680)
[2021-05-26] MEDS: carvediloL 6.25 MG TABLET PO (21:44)
--- NOTE | 2021-05-26 21:49 | PM.IMHP ---
H&P: HPI History of Present Illness Date/Time: 05/26/21 21:49 Chief Complaint: Shortness of breath Narrative: This is a 50-year-old male with past medical history significant for dyslipidemia, type 2 diabetes mellitus, hypertension, cardiomyopathy, systolic heart failure with ejection fraction 20-25% according to echocardiogram from January of 2020. Patient presented to the emergency room due to shortness of breath. Most of the history has been obtained upon reviewing medical records as patient is obtunded only answers yes or no and only complaint is shortness of breath. However earlier on he was able to give more history and and he had sustained a fall from his truck landing on his rib cage. Patient tested positive for COVID and a urine tox tested positive for amphetamines and opiates. Chest x-ray showed cardiomegaly with mild pulmonary edema a CT angiogram PE protocol was significant for cardiomegaly with possible mild pulmonary edema, chronic mediastinal and bilateral hilar lymphadenopathy, possibly reactive. Review of Systems Review of Systems: ROS unobtainable: Yes unobtainable due to mental status (Obtundation) [facility] Past Medical History Medical History Cardiomyopathy Diabetes mellitus Hx of medication noncompliance Hypertension Obesity Surgical History Surgical History History of surgery on left wrist Family History Family History Father Acute myocardial infarction of an acute [place] at age 40. Social History Social History Smoking packs per day: 0.5 Smoking cigarettes per day: 10.0 Years smoked: 32 Smoking pack-years: 16.00 Smoking status: Current every day smoker Tobacco type: cigarettes Second hand tobacco smoke exposure: No Alcohol intake: unknown Substance use: current Substance use type: methamphetamine Other substance usage details: Pt was also positive for opiates. Denies using any other susbstances. Last use: 1 week ago. Gender identity (if verbalized by the patient): Male Spiritual care concerns: No Meds Home Medications and Allergies Home Medications Medication Instructions Recorded Confirmed Type aspirin 81 mg PO DAILY 05/26/21 05/26/21 History atorvastatin 40 mg PO HS 05/26/21 05/26/21 History carvedilol 6.25 mg PO BID 05/26/21 05/26/21 History furosemide 20 mg PO DAILY 05/26/21 05/26/21 History metformin 500 mg PO BID 05/26/21 05/26/21 History Allergies Allergy/AdvReac Type Severity Reaction Status Date / Time No Known Allergies Allergy Verified 05/26/21 17:50 Vital Signs Vital Signs - 24 hr 05/26/21 17:51 05/26/21 18:16 05/26/21 18:23 Temperature 99.7 F H Pulse Rate 119 H 129 H 123 H Respiratory Rate 16 27 H 20 Blood Pressure 145/91 H 156/109 H Pulse Oximetry 95 100 94 05/26/21 18:31 05/26/21 18:35 05/26/21 18:45 Temperature Pulse Rate 127 H 124 H 126 H Respiratory Rate 21 H 27 H Blood Pressure Pulse Oximetry 96 83 L 05/26/21 18:54 05/26/21 18:56 05/26/21 19:00 Temperature Pulse Rate 122 H Respiratory Rate 41 H Blood Pressure 176/116 H Pulse Oximetry 94 96 96 05/26/21 19:01 05/26/21 21:15 05/26/21 21:44 Temperature 101.4 F H Pulse Rate 123 H 122 H 108 H Respiratory Rate 25 H 32 H Blood Pressure 189/147 H 154/119 H Pulse Oximetry 96 94 Exam Narrative: Patient is laying in [facility] Const: General: comfortable, no acute distress, well developed, alert, awake, ill appearing acutely and tired appearing Nutritional Appearance: average body habitus Orientation/consciousness: patient obtunded HENMT: Head: normal to inspection, normocephalic and atraumatic Ears: hearing grossly normal bilaterally General nose exam: Normal external nose present F
[2021-05-26 22:00] LABS: Amphetamine Screen Urine Positive (Negative); Cannabinoid Screen Urine Negative (Negative); Cocaine Screen Urine Negative (Negative); Methadone Screen Urine Negative (Negative); Opiate Screen Urine Positive (Negative); Phencyclidine Screen Urine Negative (Negative)
[2021-05-26 22:47] LABS: Ethanol < 10 mg/dL (<10)
[2021-05-27] VITALS (17 sets, daily range): BP systolic 116–137; BP diastolic 79–109; PULSE 82–108; RESP 18–28; TEMP 36.2–36.6; O2SAT 90–100
--- NOTE | 2021-05-27 00:19 | ADMGEN ---
This patient, Ayana Lee, was admitted to IMU Room 210-01 on 05/26/21 at 2310. Patient/family oriented to hospital policies and general routines including ID bracelet, bed and alarms, visiting hours, pain management, procedures, bathroom and other care routines, personal items, smoking policy, room service/diet, and visiting hours. Information on how to activate the Rapid Response Team has been discussed. Patient/Family are encouraged to report perceived risks to care and to ask questions if they do not understand what they are told or what they should do.
[2021-05-27 05:20] LABS: Basophils Percent Auto 0.4 % (0.2-1.2); Eosinophils Absolute Auto 0.2 K/mm3 (0-0.3); Hematocrit 46.2 % (42.0-52.0); Hemoglobin 15.7 g/dL (14.0-18.0); Immature Granulocyte Absolute 0.03 K/mm3 (0.00-0.031); Immature Granulocyte Percent A 0.4 % (0-0.5); Lymphocytes Absolute Auto 2.23 K/mm3 (0.9-3.2); Lymphocytes Percent Auto 30.1 % (18.3-44.2); Mean Corpuscular Hemoglobin 31.1 pg (26-34); Mean Corpuscular Volume 91.5 fl (80-100); Mean Platelet Volume 10.7 fl (7.4-10.4); Monocytes Absolute Auto 0.8 K/mm3 (0.1-0.6); Monocytes Percent Auto 11.1 % (2.6-8.5); Neutrophils Absolute Auto 4.2 K/mm3 (1.3-6.7); Platelet Count Result 189 k/mm3 (150-375); Red Blood Count 5.05 M/mm3 (4.6-6.20); Red Cell Distribution Width 12.6 % (11.5-14.5); White Blood Count 7.4 K/mm3 (4.5-10.0)
[2021-05-27 05:28] LABS: Anion Gap 6 mmol/L (8-16); Blood Urea Nitrogen 19 mg/dL (9-20); Carbon Dioxide 25 mmol/L (22-30); Chloride 99 mmol/L (98-107); Estimated CRCL calculation 73 ml/min; Estimated Glomerular Filt Rate > 60; Glucose 252 mg/dL (65-110); Potassium 3.7 mmol/L (3.4-5.0); Sodium 130 mmol/L (137-145)
--- NOTE | 2021-05-27 08:34 | PM.IMPN ---
Progress Note: A&P Assessment and Plan (1) Acute on chronic systolic heart failure, NYHA class 4: Code(s): I50.23 - Acute on chronic systolic (congestive) heart failure Status: Acute Assessment and Plan: Acutely decompensated CHF, likely secondary to noncompliance to medication, ongoing substance abuse. Per Cardiology recommendation,Carvedilol 6.25 mg p.o. b.i.d. to be started. Will initiate low-dose lisinopril also at 5 mg daily. Furosemide 20 mg IV q.12 hours for diuretic purposes.. Continue gentle diuresis while monitoring serial BMPs, renal function and electrolytes. Obtain daily weights, intake and output. Cardiology consult has been requested. Appreciate their recommendations. His aspirin and statin will be continued. Will follow with his primary secretary receptionist in [place] upon discharge. (2) Elevated troponin: Code(s): R77.8 - Other specified abnormalities of plasma proteins Status: Acute Assessment and Plan: Likely to be type 2 [place], secondary to demand supply mismatch. Follow-up echocardiogram. Continue to monitor EKG reviewed (3) COVID: Code(s): U07.1 - COVID-19 Status: Acute Assessment and Plan: Patient tested positive for COVID Patient is symptomatic with shortness of breath. However he saturates well on room air. Continue to monitor (4) Contusion of left chest wall: Qualifiers: Encounter type: initial encounter Qualified Code(s): S20.212A - Contusion of left front wall of thorax, initial encounter Code(s): S20.212A - Contusion of left front wall of thorax, initial encounter Status: Acute Assessment and Plan: Nondisplaced rib fracture Pain management; encourage incentive spirometry. (5) Acute hyponatremia: Code(s): E87.1 - Hypo-osmolality and hyponatremia Status: Acute Assessment and Plan: Likely secondary to hyperglycemia Pseudohyponatremia (6) Diabetes mellitus with hyperglycemia: Qualifiers: Diabetes mellitus exterminator insulin use: without exterminator use Diabetes mellitus type: type 2 Qualified Code(s): E11.65 - Type 2 diabetes mellitus with hyperglycemia Code(s): E11.65 - Type 2 diabetes mellitus with hyperglycemia Status: Acute Assessment and Plan: Holding metformin; fasting blood glucose was 252 today. Accu-Chek in the 249-399 range. Accu-Cheks AC and HS Insulin sliding scale as needed. Start was gene. (7) Methamphetamine abuse: Code(s): F15.10 - Other stimulant abuse, uncomplicated Status: Acute Assessment and Plan: Patient uses methamphetamine (8) Tobacco dependence: Code(s): F17.200 - Nicotine dependence, unspecified, uncomplicated Status: Chronic Assessment and Plan: Nicotine patch as needed. Subjective Date/time seen: 05/27/21 08:34 Narrative: This is a 50-year-old male with past medical history significant for dyslipidemia, type 2 diabetes mellitus, hypertension, cardiomyopathy, systolic heart failure with ejection fraction 20-25% according to echocardiogram from January of 2020. Patient presented to the emergency room due to shortness of breath. Most of the history has been obtained upon reviewing medical records as patient is obtunded only answers yes or no and only complaint is shortness of breath. However earlier on he was able to give more history and and he had sustained a fall from his truck landing on his rib cage. Patient tested positive for COVID and a urine tox tested positive for amphetamines and opiates. Chest x-ray showed cardiomegaly with mild pulmonary edema a CT angiogram PE protocol was significant for cardiomegaly with possible mild pulmonary edema, chronic mediastinal and bilateral hilar lymphadenopathy, possibly reactive. S: Patient was seen examined at the bedside very is complaining of chest/rib pain. Review of Systems Review of Systems: All systems reviewed & are unremarkable except as
[2021-05-27] MEDS: carvediloL 6.25 MG TABLET PO ×2 (09:23→20:15)
[2021-05-27] MEDS: ASPIRIN 81 MG ENTERIC TABLET PO (09:24)
--- NOTE | 2021-05-27 11:27 | PM.CNCAR ---
Assessment and Plan Assessment and plan (1) Acute on chronic systolic heart failure, NYHA class 4: Code(s): I50.23 - Acute on chronic systolic (congestive) heart failure Status: Acute Assessment and Plan: In part worsened by his noncompliance with medications routinely, continued substance abuse. Carvedilol 6.25 mg p.o. b.i.d. to be started. Will initiate low-dose lisinopril also at 5 mg daily. Furosemide 20 mg IV q.12 hours for diuretic purposes. 2D echocardiogram Doppler will be ordered and reviewed. His aspirin and statin will be continued. Will follow intake and output and daily weights. Low-salt diet. Follow-up this primary locomotive firer/fireman in [place] upon discharge (2) COVID: Code(s): U07.1 - COVID-19 Status: Acute Assessment and Plan: In isolation and further management per hospitalist (3) Elevated troponin: Code(s): R77.8 - Other specified abnormalities of plasma proteins Status: Acute Assessment and Plan: Unlikely related to acute plaque rupture. Likely secondary to decompensated heart failure plus-minus COVID. (4) Contusion of left chest wall: Qualifiers: Encounter type: initial encounter Qualified Code(s): S20.212A - Contusion of left front wall of thorax, initial encounter Code(s): S20.212A - Contusion of left front wall of thorax, initial encounter Status: Acute (5) Shortness of breath: Code(s): R06.02 - Shortness of breath Status: Acute Assessment and Plan: Related to a combination of COVID and acute on chronic systolic congestive heart failure. (6) Hypertension associated with diabetes: Code(s): E11.59 - Type 2 diabetes mellitus with other circulatory complications; I15.2 - Hypertension secondary to endocrine disorders Status: Acute Assessment and Plan: Elevated and uncontrolled. Diabetes management per hospitalist. (7) Methamphetamine abuse: Code(s): F15.10 - Other stimulant abuse, uncomplicated Status: Acute Assessment and Plan: Counseling performed an obviously stopping is recommended (8) Tobacco dependence: Code(s): F17.200 - Nicotine dependence, unspecified, uncomplicated Status: Chronic Assessment and Plan: Counseling performed and stopping recommended (9) Hypokalemia: Code(s): E87.6 - Hypokalemia Status: Acute Assessment and Plan: KCL 40 mEq p.o. x1 History of Present Illness History of Present Illness Consult date/time: 05/27/21 11:27 Requesting physician: Mg Vail DO Consult reason: congestive heart failure Reason For Visit: COVID-19,CHF,Elevated Troponin,Hyponatremia Narrative: Date of service 05/27/2021 Reason consultation: CHF, elevated troponin Requesting provider: Dr. Vail History: Patient is a 50-year-old male who follows with cardiology in [place]. He does not know the name is Dr. Martinez. He states that he is generally compliant with his medications although he readily admits to missing days at times. He uses methamphetamine 1-2 times per week. He recently fell off of a truck and landed on his ribcage. He states that over the past 3 days he has been increasingly more short of breath. He has had some paroxysmal nocturnal dyspnea. Chest pain related to the fall and rib pain related to the fall. He has had some worsening lower extremity swelling also. This resulted in him coming to the hospital. He had some fevers and chills as well has tested positive for COVID as well as chest x-ray showing cardiomegaly as well as pulmonary edema. He has been started on diuretics. Still complaining of some rib pain. Denies any syncope, presyncope. He does have a history of cardiomyopathy with ejection fraction 20-25% based upon echo from this hospital from a couple years ago.. He does not know his medications. Review of Systems Review of Systems: All systems reviewed & are unremarkable except
[2021-05-27] MEDS: INSULIN GLARGINE (*BKC) 100 UNITS/ML 10 UNITS SUB-Q (12:18)
[2021-05-27] MEDS: LIDOCAINE 5% PATCH 2 PATCH TRANSDERM (12:18)
[2021-05-27] MEDS: POTASSIUM CHLORIDE 20 MEQ TABLET 40 MEQ PO (12:19)
[2021-05-27 12:55] LABS: Glucose Point of Care 399 mg/dl (65-105)
[2021-05-27] MEDS: INSULIN ASPART (*BKC) 100 UNITS/ML SUB-Q (13:41)
[2021-05-27] MEDS: FUROSEMIDE INJ 40 MG/4 ML VIAL 20 MG IV PUSH (17:08)
[2021-05-27 17:09] LABS: Glucose Point of Care 423 mg/dl (65-105)
[2021-05-27] MEDS: HYDROcodone/acetaminophen (*CRX) 5-325 MG TABLET 1 TAB PO ×2 (17:10→23:01)
[2021-05-27] MEDS: INSULIN ASPART (*BKC) 100 UNITS/ML 10 UNITS SUB-Q (17:24)
[2021-05-27] MEDS: ATORVASTATIN 40 MG TABLET PO (20:15)
[2021-05-27] MEDS: INSULIN GLARGINE (*BKC) 100 UNITS/ML 20 UNITS SUB-Q (20:15)
[2021-05-27 21:45] LABS: Glucose Point of Care 419 mg/dl (65-105)
[2021-05-27] MEDS: BENZOCAINE/MENTHOL (*BKC) 18 EA LOZENGE 1 LOZENGE PO (22:48)
[2021-05-28] VITALS (11 sets, daily range): BP systolic 113–148; BP diastolic 67–104; PULSE 73–93; RESP 18–22; TEMP 36.5–36.8; O2SAT 94–100
--- NOTE | 2021-05-28 | ECHO_ITS ---
Patient Info Name: Ayana Lee Age: 50 years : 1970 Gender: Male Ht: 67 in Wt: 182 lbs BSA: 2.00 m2 HR: 84 bpm BP: 113 / 76 mmHg Heart Rhythm: Sinus Rhythm Exam Date: 05/28/2021 2:40 PM Exam Location: [facility] Patient Status: Inpatient Admit Date: 05/28/2021 Staff Ordering Physician: Rox Miles MD [place] Man: Tony Vaughn, DAVID, RT Attending Provider: Rox Miles MD Referring Physician: Jd GALVAN; Exam Type: CA echo dop color flow w con Study Info Indications R06.02 - Shortness of breath Complete two-dimensional, color flow and Doppler transthoracic echocardiogram is performed with contrast to opacify the left ventricle and to improve the deliniation of the left ventricle endocardial borders. Strain analysis performed. Summary 1. Left ventricular chamber dimension is moderately enlarged. 2. Left ventricular systolic function is severely reduced, estimated at 20-25%. 3. The left ventricular diastolic function is grade I diastolic dysfunction. 4. Right ventricular chamber dimension is mildly enlarged. 5. Left atrial chamber dimension is moderately enlarged. 6. There is mild to moderate mitral valve regurgitation. 7. Definity contrast injected to improve exam quality. 8. Compared with study from January of 2020 there is no appreciable difference. Left Ventricle Left ventricular chamber dimension is moderately enlarged. Left ventricular systolic function is severely reduced, estimated at 20-25%. The left ventricular diastolic function is grade I diastolic dysfunction. Right Ventricle Right ventricular chamber dimension is mildly enlarged. Left Atria Left atrial chamber dimension is moderately enlarged. Right Atria Right atrial chamber dimension is moderately enlarged. Aortic Valve The aortic valve is normal. Pulmonic Valve The pulmonic valve is normal. Mitral Valve The mitral valve has normal leaflets. There is mild to moderate mitral valve regurgitation. Tricuspid Valve The tricuspid valve leaflets are normal. There is mild tricuspid valve regurgitation. Pericardium/Pleural The pericardium appears normal. Aorta The aortic root size at the sinus of Valsalva is normal. Left Ventricular Outflow Tract Name Value Normal LVOT 2D LVOT Diameter 2.12 cm LVOT Doppler LVOT Peak Gradient 1 mmHg LVOT Mean Gradient 1 mmHg LVOT VTI 8.18 cm LVOT VTI/AV VTI Ratio 0.58 LVOT Stroke Volume 28.82 ml Mitral Valve Name Value Normal MV Doppler MV Peak Gradient 1 mmHg MV Mean Gradient 0 mmHg MV Decel [place] 573.61 cm/s2 MV PHT 0 s MV Are
[2021-05-28 00:17] LABS: Glucose Point of Care 384 mg/dl (65-105)
[2021-05-28] MEDS: INSULIN ASPART (*BKC) 100 UNITS/ML SUB-Q ×5 (00:33→17:39)
--- NOTE | 2021-05-28 09:02 | PM.IMPN ---
Progress Note: A&P Assessment and Plan (1) Acute on chronic systolic heart failure, NYHA class 4: Code(s): I50.23 - Acute on chronic systolic (congestive) heart failure Status: Acute Assessment and Plan: Acutely decompensated CHF, likely secondary to noncompliance to medication, ongoing substance abuse. Patient is on fluid restriction at home and observe low-salt diet. Continue carvedilol 6.25 mg p.o. b.i.d., lisinopril 5 mg daily, furosemide 20 mg IV q.12 hours. Patient made close to 1.4 L of urine output overnight. Continue gentle diuresis while monitoring serial BMPs, renal function and electrolytes. Obtain daily weights, intake and output. Follow up with his primary apprentice pattern maker in [place] upon discharge. (2) Elevated troponin: Code(s): R77.8 - Other specified abnormalities of plasma proteins Status: Acute Assessment and Plan: Likely to be type 2 [place], secondary to demand supply mismatch. Follow-up echocardiogram. Continue to monitor EKG reviewed (3) COVID: Code(s): U07.1 - COVID-19 Status: Acute Assessment and Plan: Patient tested positive for COVID Patient is symptomatic with shortness of breath. However he saturates well on room air. Continue to monitor (4) Contusion of left chest wall: Qualifiers: Encounter type: initial encounter Qualified Code(s): S20.212A - Contusion of left front wall of thorax, initial encounter Code(s): S20.212A - Contusion of left front wall of thorax, initial encounter Status: Acute Assessment and Plan: Nondisplaced rib fracture Pain management; encourage incentive spirometry. (5) Acute hyponatremia: Code(s): E87.1 - Hypo-osmolality and hyponatremia Status: Acute Assessment and Plan: Pseudohyponatremia, in the setting of uncontrolled diaebtes. there may be a [id number] component in the setting of decompensated CHF; in this setting hyponatremia may your portend a worse prognosis. (6) Diabetes mellitus with hyperglycemia: Qualifiers: Diabetes mellitus nursing home insulin use: without superintendent container terminal use Diabetes mellitus type: type 2 Qualified Code(s): E11.65 - Type 2 diabetes mellitus with hyperglycemia Code(s): E11.65 - Type 2 diabetes mellitus with hyperglycemia Status: Acute Assessment and Plan: Holding metformin; Accu-Chek was 289 this morning. Give glargine 21 units and monitor serial Accu-Cheks. Accu-Cheks AC and HS Continue Insulin sliding scale as needed. (7) Methamphetamine abuse: Code(s): F15.10 - Other stimulant abuse, uncomplicated Status: Acute Assessment and Plan: Patient uses methamphetamine. Care coordination consulted for substance use disorder. (8) Tobacco dependence: Code(s): F17.200 - Nicotine dependence, unspecified, uncomplicated Status: Chronic Assessment and Plan: Nicotine patch as needed. Patient was extensively counseled to quit smoking. Subjective Date/time seen: 05/28/21 09:02 S: Patient was seen and examined at the bedside. He is breathing comfortably on the side of his bed. He denies any complaints. He is on oxygen 2 L per minute via nasal cannula. Review of Systems Review of Systems: All systems reviewed & are unremarkable except as noted in HPI and below ROS unobtainable: Yes unobtainable due to mental status (Obtundation) Constitutional: Constitutional: Reports as per HPI and Reports no additional constitutional complaints Eyes: Eyes: Reports as per HPI and Reports no additional eye complaints ENT: Reports system reviewed and no additional complaints, except as documented and Reports as per HPI Cardiovascular: Cardiovascular: Reports as per HPI, Reports no additional cardiovascular complaints and Reports dyspnea Respiratory: Respiratory: Reports as per HPI, Reports no additional respiratory complaints and Reports dyspnea Gastrointestinal: Gastrointestinal: Reports as
[2021-05-28] MEDS: ASPIRIN 81 MG ENTERIC TABLET PO (09:05)
[2021-05-28] MEDS: LIDOCAINE 5% PATCH 2 PATCH TRANSDERM (09:05)
[2021-05-28] MEDS: lisinopriL 5 MG TABLET PO (09:05)
[2021-05-28] MEDS: carvediloL 6.25 MG TABLET PO ×2 (09:05→20:35)
[2021-05-28] MEDS: INSULIN GLARGINE (*BKC) 100 UNITS/ML 21 UNITS SUB-Q (09:06)
[2021-05-28] MEDS: FUROSEMIDE INJ 40 MG/4 ML VIAL 20 MG IV PUSH (09:07)
[2021-05-28 09:17] LABS: Glucose Point of Care 284 mg/dl (65-105)
--- NOTE | 2021-05-28 12:01 | PM.PNCARD ---
Progress Note: A&P Assessment and Plan (1) Acute on chronic systolic heart failure, NYHA class 4: Code(s): I50.23 - Acute on chronic systolic (congestive) heart failure Status: Acute Assessment and Plan: In part worsened by his noncompliance with medications routinely, continued substance abuse. Continue Carvedilol 6.25 mg p.o. b.i.d. Will initiate low-dose lisinopril also at 5 mg daily. Furosemide 20mg p.o. b.i.d 2D echocardiogram Doppler will be ordered and reviewed. His aspirin and statin will be continued. Will follow intake and output and daily weights. Low-salt diet. Follow-up this primary electro winning operator in [place] upon discharge (2) COVID: Code(s): U07.1 - COVID-19 Status: Acute Assessment and Plan: In isolation and further management per hospitalist (3) Elevated troponin: Code(s): R77.8 - Other specified abnormalities of plasma proteins Status: Acute Assessment and Plan: Unlikely related to acute plaque rupture. Likely secondary to decompensated heart failure plus-minus COVID. (4) Contusion of left chest wall: Qualifiers: Encounter type: initial encounter Qualified Code(s): S20.212A - Contusion of left front wall of thorax, initial encounter Code(s): S20.212A - Contusion of left front wall of thorax, initial encounter Status: Acute (5) Shortness of breath: Code(s): R06.02 - Shortness of breath Status: Acute Assessment and Plan: Related to a combination of COVID and acute on chronic systolic congestive heart failure. (6) Hypertension associated with diabetes: Code(s): E11.59 - Type 2 diabetes mellitus with other circulatory complications; I15.2 - Hypertension secondary to endocrine disorders Status: Acute Assessment and Plan: Elevated and uncontrolled. Diabetes management per hospitalist. (7) Methamphetamine abuse: Code(s): F15.10 - Other stimulant abuse, uncomplicated Status: Acute Assessment and Plan: Counseling performed and obviously stopping is recommended (8) Tobacco dependence: Code(s): F17.200 - Nicotine dependence, unspecified, uncomplicated Status: Chronic Assessment and Plan: Counseling performed (9) Hypokalemia: Code(s): E87.6 - Hypokalemia Status: Acute Assessment and Plan: WNL today Subjective Date/time seen: 05/28/21 12:01 Follow up visit 05/28/2021: Feeling better today. Swelling has resolved. No shortness of breath, able to lay flat today. Review of Systems Review of Systems: All systems reviewed & are unremarkable except as noted in HPI and below Constitutional: Constitutional: Denies excessive sweating, Reports fatigue, Denies headache(s) and Denies weakness Eyes: Eyes: Denies blurry vision ENT: Reports Normal hearing present, Denies headache(s) and Denies neck pain Cardiovascular: Cardiovascular: Reports chest pain, Reports leg edema and Reports dyspnea Respiratory: Respiratory: Reports dyspnea Gastrointestinal: Gastrointestinal: Denies abdominal pain Genitourinary: Genitourinary: Denies dysuria Musculoskeletal: Musculoskeletal: Denies neck pain Integumentary/Breasts: Skin/Breast: Denies dry skin Neurologic: Reports Normal hearing present, Denies confusion, Denies headache(s) and Denies weakness Psychiatric: Psychiatric: Denies anxiety and Denies confusion Endocrine: Endocrine: Denies excessive sweating and Reports fatigue Hematologic/Lymphatic: Hematologic/Lymphatic: Denies easy bleeding Allergic/Immunologic: Allergic/Immunologic: Denies GI upset with certain foods Exam Const: General: comfortable and no acute distress; No confusion Orientation/consciousness: No confusion HENMT: General nose exam: Normal nares present Eyes: Sclera: sclerae normal Neck: Neck: supple and no JVD Carotids: no bruits Resp: Auscultation: clear to auscultation bilatera
[2021-05-28 13:13] LABS: Glucose Point of Care 432 mg/dl (65-105)
[2021-05-28] MEDS: PERFLUTREN LIPID MICROSPHERES 1.5 ML VIAL DILUTED TO 10 ML TOTAL VOLUME IV PUSH (14:23)
[2021-05-28 17:19] LABS: Glucose Point of Care 381 mg/dl (65-105)
[2021-05-28] MEDS: FUROSEMIDE 20 MG TABLET PO (17:39)
[2021-05-28] MEDS: ATORVASTATIN 40 MG TABLET PO (20:35)
[2021-05-28] MEDS: INSULIN GLARGINE (*BKC) 100 UNITS/ML 20 UNITS SUB-Q (20:36)
--- NOTE | 2021-05-28 21:00 | PC.NURSE ---
Patient kept taking off monitor, placed back on monitor at 2039. At 2044 nurse made aware patient back off monitor, RN went back in room and did not find patient in room. Tele monitor found on bed, patients belongings gone. supervisor game farm and security called, RN checked front end ui developer and they believe a person had just recently walked outside, but patient was no where to be found. RN called patient's cell phone and left message that he left against medical advise, he needs to self isolate because he was covid positive and that if he needs medical assistance he needs to come back through the ER. called patient's emergency contact but no answer. Hospitalist solar installation crew supervisor was attempted to be notified, awaiting call back.
[2021-05-28 21:08] LABS: Glucose Point of Care 392 mg/dl (65-105)
--- NOTE | 2021-05-29 10:00 | PM.DS ---
DS: Admitting Diagnosis Discharge Date 05/28/21 Admitting Diagnosis This is a 50-year-old male with past medical history significant for dyslipidemia, type 2 diabetes mellitus, hypertension, cardiomyopathy, systolic heart failure with ejection fraction 20-25% according to echocardiogram from January of 2020. Patient presented to the emergency room due to shortness of breath. Most of the history has been obtained upon reviewing medical records as patient is obtunded only answers yes or no and only complaint is shortness of breath. However earlier on he was able to give more history and and he had sustained a fall from his truck landing on his rib cage. Patient tested positive for COVID and a urine tox tested positive for amphetamines and opiates. Chest x-ray showed cardiomegaly with mild pulmonary edema a CT angiogram PE protocol was significant for cardiomegaly with possible mild pulmonary edema, chronic mediastinal and bilateral hilar lymphadenopathy, possibly reactive. DS: Discharge Diagnosis Discharge Diagnosis (1) Acute on chronic systolic heart failure, NYHA class 4: Code(s): I50.23 - Acute on chronic systolic (congestive) heart failure Status: Acute Assessment and Plan: Acutely decompensated CHF, likely secondary to noncompliance to medication, ongoing substance abuse. Patient is on fluid restriction at home and observe low-salt diet. Continue carvedilol 6.25 mg p.o. b.i.d., lisinopril 5 mg daily, furosemide 20 mg IV q.12 hours. Patient made close to 1.4 L of urine output overnight. Continue gentle diuresis while monitoring serial BMPs, renal function and electrolytes. Obtain daily weights, intake and output. Follow up with his primary manager market research in [place] upon discharge. (2) Elevated troponin: Code(s): R77.8 - Other specified abnormalities of plasma proteins Status: Acute Assessment and Plan: Likely to be type 2 IN, secondary to demand supply mismatch. Follow-up echocardiogram. Continue to monitor EKG reviewed (3) COVID: Code(s): U07.1 - COVID-19 Status: Acute Assessment and Plan: Patient tested positive for COVID Patient is symptomatic with shortness of breath. However he saturates well on room air. Continue to monitor (4) Contusion of left chest wall: Qualifiers: Encounter type: initial encounter Qualified Code(s): S20.212A - Contusion of left front wall of thorax, initial encounter Code(s): S20.212A - Contusion of left front wall of thorax, initial encounter Status: Acute Assessment and Plan: Nondisplaced rib fracture Pain management; encourage incentive spirometry. (5) Acute hyponatremia: Code(s): E87.1 - Hypo-osmolality and hyponatremia Status: Acute Assessment and Plan: Pseudohyponatremia, in the setting of uncontrolled diaebtes. there may be a [id number] component in the setting of decompensated CHF; in this setting hyponatremia may your portend a worse prognosis. (6) Diabetes mellitus with hyperglycemia: Qualifiers: Diabetes mellitus termite treater helper insulin use: without termite treater helper use Diabetes mellitus type: type 2 Qualified Code(s): E11.65 - Type 2 diabetes mellitus with hyperglycemia Code(s): E11.65 - Type 2 diabetes mellitus with hyperglycemia Status: Acute Assessment and Plan: Holding metformin; Accu-Chek was 289 this morning. Give glargine 21 units and monitor serial Accu-Cheks. Accu-Cheks AC and HS Continue Insulin sliding scale as needed. (7) Methamphetamine abuse: Code(s): F15.10 - Other stimulant abuse, uncomplicated Status: Acute Assessment and Plan: Patient uses methamphetamine. Care coordination consulted for substance use disorder. (8) Tobacco dependence: Code(s): F17.200 - Nicotine dependence, unspecified, uncomplicated Status: Chronic Assessment and Plan: Nicotine patch as needed. Patient was extensively c
== END 2021-05-28 21:00 | disposition left against medical advice (07) | DRG 194 ==
LOC: ANHED 21:37 → ANHIMU 22:20
PROVIDERS: Nurse Practitioner; Admitting Provider Internal Medicine; Emergency Provider Emergency Medicine; PCP Emergency Medicine; Visit Provider Internal Medicine
DX: I11.0 Hypertensive heart disease with heart failure (principal); I50.23 Acute on chronic systolic (congestive) heart failure; Z91.14 Patient's other noncompliance with medication regimen; I21.A1 Myocardial infarction type 2; U07.1 COVID-19; E87.1 Hypo-osmolality and hyponatremia; E78.5 Hyperlipidemia, unspecified; I42.9 Cardiomyopathy, unspecified; S20.212A Contusion of left front wall of thorax, initial encounter; W17.89XA Other fall from one level to another, initial encounter; E11.65 Type 2 diabetes mellitus with hyperglycemia; F15.10 Other stimulant abuse, uncomplicated; F17.210 Nicotine dependence, cigarettes, uncomplicated
CPT/HCPCS: 36415; 36600; 71046; 71100; 71275; 74177; 80048; 80053; 80307; 81001; 82805; 82948; 83690; 83880; 84439; 84443; 84484; 85025; 85610; 85730; 87426; 87804; 93005; 96361; 96365; 96375; 96376; 99285; A9270; C8929; C9803; G0378; J0131; J1100; J1815; J1940; J2270; J7030; Q9957; Q9967

== ENCOUNTER 2021-07-14 07:04 | Emergency (ER) | payer BC, SELFPAY ==
[2021-07-14] VITALS (27 sets, daily range): BP systolic 128–164; BP diastolic 95–117; PULSE 82–117; RESP 12–45; TEMP 36.6–36.9; O2SAT 89–98
--- NOTE | ~2021-07-14 | XR_ITS ---
EXAMINATION: XR chest 2V DATE: 07/14/2021 07:51 INDICATION: Shortness of breath. Dizziness. Congestive heart failure. TECHNIQUE: Frontal and lateral views of the chest were obtained. COMPARISON: Chest CT 05/26/2021, chest 2 views 05/26/2021 FINDINGS: There is a diffuse interstitial pattern, consistent with mild pulmonary edema. No pleural e ffusion or pneumothorax. Cardiomegaly is noted. IMPRESSION: 1. Mild pulmonary edema. 2. Cardiomegaly. Reviewed, dictated and finalized at location A. ANESE WHEELER
--- NOTE | 2021-07-14 07:17 | ECG_ITS ---
Measurements Intervals [place] Rate: 108 P: 39 MA: 179 QRS: 37 QRSD: 119 T: 86 QT: 351 QTc: 471 Interpretive Statements SINUS TACHYCARDIA LEFT ATRIAL ENLARGEMENT [-0.15mV P-WAVE IN V1/V2] POOR R WAVE PROGRESSION; CAN NOT RULE OUT OLD SEPTAL SC COMPARED TO ECG 05/26/2021 20:35:54 MYOCARDIAL INFARCT FINDING NOW PRESENT Electronically Signed On 07-14-2021 13:20:03 MANAGER CARE by Fay Goodrich M.D.
[2021-07-14 07:41] LABS: Basophils Absolute Auto 0.1 K/mm3 (0.0-0.1); Basophils Percent Auto 0.4 % (0.2-1.2); Eosinophils Absolute Auto 0.2 K/mm3 (0-0.3); Eosinophils Percent Auto 1.2 % (0-4.4); Hematocrit 42.6 % (42.0-52.0); Immature Granulocyte Absolute 0.05 K/mm3 (0.00-0.031); Immature Granulocyte Percent A 0.4 % (0-0.5); Lymphocytes Absolute Auto 2.63 K/mm3 (0.9-3.2); Lymphocytes Percent Auto 21.6 % (18.3-44.2); Mean Corpuscular HGB Conc 32.9 g/dl (32-36); Mean Corpuscular Hemoglobin 30.6 pg (26-34); Mean Corpuscular Volume 93.2 fl (80-100); Mean Platelet Volume 10.4 fl (7.4-10.4); Monocytes Absolute Auto 0.9 K/mm3 (0.1-0.6); Monocytes Percent Auto 7.5 % (2.6-8.5); Neutrophils Absolute Auto 8.4 K/mm3 (1.3-6.7); Neutrophils Percent Auto 68.9 % (45.5-73.1); Platelet Count Result 293 k/mm3 (150-375); Red Blood Count 4.57 M/mm3 (4.6-6.20); Red Cell Distribution Width 13.9 % (11.5-14.5); White Blood Count 12.2 K/mm3 (4.5-10.0)
[2021-07-14 07:51] LABS: Alanine Aminotransferase 18 U/L (4-50); Albumin Level 3.9 g/dL (3.5-5.1); Alkaline Phosphatase 139 U/L (38-126); Anion Gap 8 mmol/L (8-16); Aspartate Amino Transferase 23 U/L (17-59); Bilirubin,Total 0.6 mg/dL (0.2-1.3); Blood Urea Nitrogen 19 mg/dL (9-20); Calcium 8.7 mg/dL (8.4-10.2); Carbon Dioxide 25 mmol/L (22-30); Chloride 104 mmol/L (98-107); Estimated CRCL calculation 73 ml/min; Estimated Glomerular Filt Rate > 60; Glucose 237 mg/dL (65-110); Potassium 3.8 mmol/L (3.4-5.0); Sodium 137 mmol/L (137-145)
[2021-07-14 08:32] LABS: NT Pro B Type Natriuretic Pept 3950 pg/mL (5-100); Troponin I 0.045 ng/mL (0.000-0.034)
[2021-07-14 08:40] LABS: INR 1.1; Prothrombin Time 13.9 Seconds (11.1-14.7)
--- NOTE | 2021-07-14 09:07 | ED.GENADULT ---
HPI - General Adult General Chief complaint: Shortness of Breath/Dyspnea Stated complaint: SOB Time Seen by Provider: 07/14/21 07:07 History of Present Illness HPI narrative: Patient is a 50-year-old male who presents ER with reports of shortness of breath. Patient reports over the last couple days has been having sinus congestion and sore throat. He also reports he has a tickle in his throat that would not go away and has discomfort with swallowing and laying backwards. No chest pain or chest pressure. No racing of the heart. Denies fevers or chills or sweats. No new edema to the legs. Patient does has history of cardiomyopathy with an EF 25% per him. Related Data Home Medications Medication Instructions Recorded Confirmed aspirin 81 mg PO DAILY 05/26/21 05/26/21 atorvastatin 40 mg PO HS 05/26/21 05/26/21 carvedilol 6.25 mg PO BID 05/26/21 05/26/21 furosemide 20 mg PO DAILY 05/26/21 05/26/21 metformin 500 mg PO BID 05/26/21 05/26/21 Allergies Allergy/AdvReac Type Severity Reaction Status Date / Time No Known Allergies Allergy Verified 05/27/21 04:23 Review of Systems Review of Systems: All systems reviewed & are unremarkable except as noted in HPI and below Constitutional: Constitutional: Denies chills, Denies fever(s) and Denies weakness ENT: Reports nasal congestion and Reports sore throat Cardiovascular: Cardiovascular: Denies chest pain, Denies rapid heart rate and Denies radiating jaw, neck or arm pain Respiratory: Respiratory: Denies chest congestion, Reports cough, Reports dyspnea and Denies wheezing Gastrointestinal: Gastrointestinal: Denies abdominal pain, Denies nausea and Denies vomiting Neurologic: Denies headache(s), Denies focal weakness and Denies numbness Psychiatric: Psychiatric: Reports anxiety PMFSH Past Medical History Medical History Cardiomyopathy Diabetes mellitus Hx of medication noncompliance Hypertension Obesity Surgical History Surgical History History of surgery on left wrist Family History Family History Father Acute myocardial infarction of an acute [place] at age 40. Social History Social History Smoking packs per day: 0.5 Smoking cigarettes per day: 10.0 Years smoked: 32 Smoking pack-years: 16.00 Smoking status: Current every day smoker Tobacco type: cigarettes Second hand tobacco smoke exposure: No Alcohol intake: unknown Substance use: current Substance use type: methamphetamine Other substance usage details: Pt was also positive for opiates. Denies using any other susbstances. Last use: 1 week ago. Gender identity (if verbalized by the patient): Male Spiritual care concerns: No Exam Narrative: GENERAL: Uncomfortable-appearing, well-nourished, and in no acute distress. HEAD: Normocephalic, atraumatic. EYES: PERRL and EOMI. ENT: Dry mucous membranes. Mild pharyngeal erythema without tonsillar hypertrophy or exudate. NECK: Supple. CHEST: Clear to auscultation. No respiratory distress. HEART: Tachycardic and regular. Normal peripheral pulses. ABDOMEN: Soft, nontender, nondistended. EXTREMITIES: Normal range of motion. No edema. SKIN: Warm, dry, no rash. NEURO: Alert and oriented x3. Course Course Emergency Course: Patient much more calm now that he received some Ativan. Patient has no respiratory distress. He has no abnormal lung sounds she did receive some Lasix for diuresis and has been urinating in the trash can. Patient has no reports of pain or shortness of breath at this time. He has been ambulatory without hypoxia. There are times where the pulse ox does not hot die picker well on his finger which was demonstrated while he walked where he had a quick dip to 88% and then immediately went back u
[2021-07-14] MEDS: LORazepam INJ (*CRX) 2 MG/ML VIAL 0.5 MG IV PUSH (09:15)
[2021-07-14] MEDS: FUROSEMIDE INJ 40 MG/4 ML VIAL IV PUSH (09:16)
--- NOTE | 2021-07-14 11:21 | PC.NURSE ---
Pt ambulated in hallway with pulse ox. While walking stayed 95-96% on room air. After sitting down on the side of the bed, pt began breathing faster and falling asleep and dropped to 88%. Pt redirected to breath normally and 02 sat improved. EDP notified
[2021-07-14 11:31] LABS: Base Excess ABG -0.9 mEq/l (+/-2.0); Carboxyhemoglobin 1.8 % THb (0-2.0); Fractional Inspired Oxygen 21 %; HCO3 ABG 19.9 mEq/l (22.0-26.0); Methemoglobin ABG 0.2 %THb (0-1.5); Oxygen Content ABG 19.8 %vol (16.0-22.0); Oxygen Saturation ABG 95.5 % (95.0-100.0); Oxyhemoglobin 92.6 % THb (90.0-100.0); PCO2 ABG 24.7 mmHg (35.0-45.0); PO2 ABG 67.2 mmHg (80.0-100.0); Reduced Hemoglobin 5.4 %THb (0-5.0); Total Hemoglobin 15.2 g/dL (12.0-18.0); pH ABG 7.525 (7.350-7.450)
[2021-07-14 11:32] LABS: Modified Allen's Test Pass; Site Drawn RIGHT RADIAL
[2021-07-14 11:54] LABS: Barbiturate Screen Urine Negative (Negative); Benzodiazepines Screen Urine Negative (Negative)
[2021-07-14 12:32] LABS: Troponin I 0.044 ng/mL (0.000-0.034)
[2021-07-14 12:38] LABS: Cannabinoid Screen Urine Negative (Negative); Cocaine Screen Urine Negative (Negative); Methadone Screen Urine Negative (Negative); Opiate Screen Urine Negative (Negative); Phencyclidine Screen Urine Negative (Negative)
[2021-07-14 12:56] LABS: Amphetamine Screen Urine Positive (Negative)
--- NOTE | 2021-07-14 13:21 | PC.NURSE ---
Assumed pt care at this time. Pt asleep w/o any ditress noted.
== END 2021-07-14 14:16 | disposition home or self-care (01) ==
PROVIDERS: Emergency Provider Emergency Medicine
DX: I50.9 Heart failure, unspecified (principal); E87.3 Alkalosis; F15.10 Other stimulant abuse, uncomplicated; I42.9 Cardiomyopathy, unspecified; E11.9 Type 2 diabetes mellitus without complications; I10 Essential (primary) hypertension; E66.9 Obesity, unspecified; Z68.28 Body mass index [BMI] 28.0-28.9, adult; F17.210 Nicotine dependence, cigarettes, uncomplicated; I51.7 Cardiomegaly; R00.0 Tachycardia, unspecified; R94.31 Abnormal electrocardiogram [ECG] [EKG]; Z79.82 Long term (current) use of aspirin; Z79.84 Long term (current) use of oral hypoglycemic drugs
CPT/HCPCS: 36415; 36600; 71046; 80053; 80307; 82375; 82805; 83050; 83880; 84484; 85025; 85610; 85730; 93005; 96374; 96375; 99284; J1940; J2060

== ENCOUNTER 2022-05-13 22:24 | Observation (INO) | payer BC, SELFPAY ==
--- NOTE | ~2022-05-13 | XR_ITS ---
EXAMINATION: XR chest 1V portable Exam Date/Time: 05/13/2022 22:43 IRRIGATION TAX ASSESSOR COLLECTOR HISTORY: dyspnea. Hx htn Comparison: 07/14/2021. RESULT: Lines, tubes, and devices: None. Lungs and pleura: Diffuse reticular opacities. Bilateral angle blunting. Cardiomediastinal silhouette: Stable. Other: No acute osseous or upper abdominal finding. IMPRESSION: Interstitial edema with small bilateral effusions. Reviewed, dictated and finalized at location K. GATION TAX ASSESSOR COLLECTOR
--- NOTE | ~2022-05-13 | CT_ITS ---
EXAMINATION: CTA chest PE protocol DATE: 05/14/2022 00:55 INDICATION: Shortness of breath. TECHNIQUE: Computed tomography angiography (CTA) of the chest was performed with 100 mL Omnipaque-350 intravenous contrast timed to evaluate the pulmonary arteries. Coronal maximum intensity projection 3D-reconstructions were created by the technologist. Automated exposure control and iterative reconst ruction technique were employed. The dose-length product was 628.57 mGy-cm. COMPARISON: Chest CT 05/26/2021 FINDINGS: Calcified pulmonary nodules and calcified mediastinal lymph nodes are consistent with old g ranulomatous disease. There is smooth septal thickening in the lungs, consistent with mild pulmonary edema. There is mild atelectasis bilaterally. There are small pleural effusions, right worse than lef t. There is mild mediastinal and bilateral hilar lymphadenopathy, likely reactive. Cardiomegaly is no sowmya. There are coronary artery calcifications. There is a trace pericardial effusion. There is no pul monary embolus. There is a small volume of ascites in the upper abdomen. Body wall edema is noted. Th ere is mild thoracic spondylosis. There is mild chronic anterior wedging of T11 vertebral body. IMPRESSION: 1. No pulmonary embolus. 2. Mild pulmonary edema. 3. Small pleural effusions, right worse than left. 4. Cardiomegaly. 5. Ascites. Reviewed, dictated and finalized at location A. AGER AND STRAPPER
[2022-05-13 22:25] VITALS: BP 139/100; PULSE 92; RESP 22; TEMP 36.7; O2SAT 97
[2022-05-13 22:28] VITALS: BP 139/100; PULSE 97; RESP 22; TEMP 36.7; O2SAT 100
--- NOTE | 2022-05-13 22:29 | ECG_ITS ---
Measurements Intervals [place] Rate: 98 P: 35 NE: 197 QRS: 152 QRSD: 108 T: 39 QT: 365 QTc: 466 Interpretive Statements SINUS RHYTHM POSSIBLE LEFT ATRIAL ENLARGEMENT LOW QRS VOLTAGE IN LIMB LEADS EXTENSIVE ANTERIOR INFARCT, AGE INDETERMINATE HIGH LATERAL INFARCT, AGE INDETERMINATE BASELINE ARTIFACT- I, III, AVR, AVL ABNORMAL ECG COMPARED TO ECG 07/14/2021 07:32:42 SINUS RHYTHM NOW PRESENT MYOCARDIAL INFARCT FINDING NOW PRESENT Electronically Signed On 05-14-2022 7:59:46 TEXTILE SCREEN MAKER by Dave Rowley D.O.
[2022-05-13 22:57] LABS: Basophils Absolute Auto 0.1 K/mm3 (0.0-0.1); Basophils Percent Auto 0.6 % (0.2-1.2); Eosinophils Absolute Auto 0.1 K/mm3 (0-0.3); Eosinophils Percent Auto 1.5 % (0-4.4); Hematocrit 40.9 % (42.0-52.0); Hemoglobin 12.9 g/dL (14.0-18.0); Immature Granulocyte Absolute 0.03 K/mm3 (0.00-0.031); Immature Granulocyte Percent A 0.4 % (0-0.5); Lymphocytes Absolute Auto 1.46 K/mm3 (0.9-3.2); Lymphocytes Percent Auto 17.1 % (18.3-44.2); Mean Corpuscular HGB Conc 31.5 g/dl (32-36); Mean Corpuscular Hemoglobin 29.5 pg (26-34); Mean Corpuscular Volume 93.6 fl (80-100); Mean Platelet Volume 10.7 fl (7.4-10.4); Monocytes Absolute Auto 0.9 K/mm3 (0.1-0.6); Monocytes Percent Auto 10.4 % (2.6-8.5); Platelet Count Result 251 k/mm3 (150-375); Red Blood Count 4.37 M/mm3 (4.6-6.20); Red Cell Distribution Width 17.8 % (11.5-14.5); White Blood Count 8.6 K/mm3 (4.5-10.0)
[2022-05-13 23:09] LABS: Alanine Aminotransferase 21 U/L (6-50); Albumin Level 3.4 g/dL (3.5-5.1); Alkaline Phosphatase 229 U/L (38-126); Anion Gap 6 mmol/L (8-16); Aspartate Amino Transferase 29 U/L (17-59); Bilirubin,Total 1.1 mg/dL (0.2-1.3); Blood Urea Nitrogen 18 mg/dL (9-20); Calcium 8.1 mg/dL (8.4-10.2); Carbon Dioxide 27 mmol/L (22-30); Chloride 104 mmol/L (98-107); Estimated CRCL calculation 96 ml/min; Estimated Glomerular Filt Rate > 60; Glucose 204 mg/dL (65-110); Sodium 137 mmol/L (137-145)
[2022-05-13 23:10] LABS: INR 1.4; Prothrombin Time 16.2 Seconds (11.1-14.7)
[2022-05-13 23:11] LABS: Partial Thromboplastin Time 30.5 SECONDS (22.3-36.8)
[2022-05-13 23:25] LABS: NT Pro B Type Natriuretic Pept 9980 pg/mL (5-100); Troponin I 0.166 ng/mL (0.000-0.034)
[2022-05-13 23:33] LABS: Influenza A QL RT-PCR Negative (Negative); Influenza B QL RT-PCR Negative (Negative); SARS-CoV-2 RNA PCR Negative
--- NOTE | 2022-05-14 00:06 | ED.SOB ---
HPI - SOB/Dyspnea General Chief Complaint: Shortness of Breath/Dyspnea <Bhavya oL PA-C - Last Filed: 05/14/22 02:29> Stated Complaint: sob <RUDOLPH Rodriguez Last Filed: 05/14/22 02:29> Time Seen by Provider: 05/13/22 23:02 <RUDOLPH Rodriguez Last Filed: 05/14/22 02:29> Source: patient and EMS <RUDOLPH Rodriguez Last Filed: 05/14/22 02:29> Mode of arrival: EMS <RUDOLPH Rodriguez Last Filed: 05/14/22 02:29> Limitations: no limitations <RUDOLPH Rodriguez Last Filed: 05/14/22 02:29> History of Present Illness HPI Narrative: This is a 51 year old male that presents to the ER for shortness of breath. Reports ongoing cold symptoms over the last couple of weeks. Reports cough, congestion, rhinorrhea. Reports worsening shortness of breath and lower extremity edema which prompted him to be seen. Denies fever or chest pain. <RUDOLPH Rodriguez Last Filed: 05/14/22 02:29> Related Data Home Medications: Home Medications Medication Instructions Recorded Confirmed aspirin 81 mg tablet,delayed 81 mg PO DAILY 05/26/21 05/26/21 release atorvastatin 40 mg tablet 40 mg PO HS 05/26/21 05/26/21 carvedilol 6.25 mg tablet 6.25 mg PO BID 05/26/21 05/26/21 furosemide 20 mg tablet 20 mg PO DAILY 05/26/21 05/26/21 metformin 500 mg tablet 500 mg PO BID 05/26/21 05/26/21 <RUDOLPH Rodriguez Last Filed: 05/14/22 02:29> Allergies/Adverse Reactions: Allergies Allergy/AdvReac Type Severity Reaction Status Date / Time No Known Allergies Allergy Verified 05/14/22 00:11 <RUDOLPH Rodriguez Last Filed: 05/14/22 02:29> Review of Systems Review of Systems: CONSTITUTIONAL: Denies fever ENT: Reports rhinorrhea, congestion, sore throat CARDIOVASCULAR: Reports edema. Denies chest pain RESPIRATORY: Reports cough and dyspnea. <Bhavya Lo PA-C - Last Filed: 05/14/22 02:29> All systems reviewed & are unremarkable except as noted in HPI and below <Bhavya Lo PA-C - Last Filed: 05/14/22 02:29> PMFSH Past Medical History Medical History: Medical History Cardiomyopathy Diabetes mellitus Hx of medication noncompliance Hypertension Obesity <Bhavya Lo PA-C - Last Filed: 05/14/22 02:29> Surgical History Surgical History: Surgical History History of surgery on left wrist <Bhavya Lo PA-C - Last Filed: 05/14/22 02:29> Family History Family History: Family History Father Acute myocardial infarction of an acute [place] at age 40. <Bhavya Lo PA-C - Last Filed: 05/14/22 02:29> Social History Social History: Social History Smoking packs per day: 0.5 Smoking cigarettes per day: 10.0 Years smoked: 32 Smoking pack-years: 16.00 Smoking status: Current every day smoker Tobacco type: cigarettes Second hand tobacco smoke exposure: No Alcohol intake: unknown Substance use: current Substance use type: methamphetamine Other substance usage details: Pt was also positive for opiates. Denies using any other susbstances. Last use: 1 week ago. Gender identity (if verbalized by the patient): Male Spiritual care concerns: No <Bhavya Lo PA-C - Last Filed: 05/14/22 02:29> Exam Narrative: GENERAL: Disheveled, well-nourished, and in no acute distress. HEAD: Normocephalic, atraumatic. EYES: EOMI. ENT: Nares clear, no rhinorrhea or epistaxis. Mucous membranes moist. Oropharynx without tonsillar hypertrophy exudate or other lesions. Bilateral TMs pearly see non-bulging NECK: Supple. No adenopathy or masses. CHEST: No respiratory distress. Rales at the lung bases. No wheezes or rhonchi HEART: Regular rate and rhythm. No murmur heard. Normal perip
[2022-05-14] MEDS: FUROSEMIDE INJ 40 MG/4 ML VIAL IV PUSH (00:11)
[2022-05-14 00:20] VITALS: BP 118/78; PULSE 82; RESP 25; TEMP 36.8; O2SAT 100
[2022-05-14 00:23] LABS: D Dimer 1.95 ug/mL (<0.48)
[2022-05-14 02:43] LABS: Troponin I 0.186 ng/mL (0.000-0.034)
[2022-05-14 02:55] VITALS: BP 131/82; PULSE 98; RESP 20; TEMP 36.1; O2SAT 98
[2022-05-14 02:58] LABS: Amphetamine Screen Urine Positive (Negative); Barbiturate Screen Urine Negative (Negative); Benzodiazepines Screen Urine Negative (Negative); Cannabinoid Screen Urine Negative (Negative); Cocaine Screen Urine Negative (Negative); Methadone Screen Urine Negative (Negative); Opiate Screen Urine Negative (Negative); Phencyclidine Screen Urine Negative (Negative)
--- NOTE | 2022-05-14 03:31 | ADMGEN ---
This patient, Ayana Wong Jesus, was admitted to IMU Room 205-01. Patient/family oriented to hospital policies and general routines including ID bracelet, bed and alarms, visiting hours, pain management, procedures, bathroom and other care routines, personal items, smoking policy, room service/diet, and visiting hours. Information on how to activate the Rapid Response Team has been discussed. Patient/Family are encouraged to report perceived risks to care and to ask questions if they do not understand what they are told or what they should do.
[2022-05-14 04:00] VITALS: PULSE 88
[2022-05-14 04:03] VITALS: BP 141/106; PULSE 94; RESP 21; TEMP 36.8; O2SAT 98
--- NOTE | 2022-05-14 05:19 | PC.NURSE ---
Pt left AMA. IV and telemetry box removed. Pt educated about the risks of leaving with only one dose of IV diuresis and the pt still complaining of shortness of breath with his other comorbidities. The pt is still wanting to leave due to not receiving sleeping medication and still feeling short of breath after one dose of lasix IVP. The pt is awaiting a ride from a friend in the lobby. Adult Daycare Coordinator notified.
--- NOTE | 2022-05-14 05:36 | PM.IMHP ---
H&P: HPI History of Present Illness Date/Time: 05/14/22 05:36 Chief Complaint: Shortness of breath Narrative: Patient is a 51-year-old male with history of drug abuse, cardiomyopathy and medication nonadherence who presented to the ER with shortness of breath. He was found to be in acute on chronic CHF exacerbation with anasarca. The patient was admitted for observation. The patient received Lasix in the ER. When the patient arrived to the floor he was demanding food. A lunch tray was provided for him after the admission process which took approximately 15-20 minutes. The patient stated that his shortness of breath was not any better. Nursing staff informed him that he needed to let the medications work. He was demanding sleeping medications at 05:00. Nursing staff notified him that we could not give him sleeping medications when it was in fact morning hours. Before the nurse could contact me as have a sitting in the dictation room on the floor getting ready go see the patient the patient got up out of his room and tried to walk out of the hospital to leave AMA without notifying staff. Nursing staff stop the patient from leaving and tried to talk to the patient about staying in discussed the risks of leaving including or worsening of his condition in the patient still insisted upon leaving AMA. FOR[facility]LY [facility] Past Medical History Medical History Cardiomyopathy Diabetes mellitus Hx of medication noncompliance Hypertension Obesity Surgical History Surgical History History of surgery on left wrist Family History Family History Father Acute myocardial infarction of an acute [place] at age 40. Social History Social History Smoking packs per day: 1 Smoking cigarettes per day: 20.0 Years smoked: 39 Smoking pack-years: 39.00 Smoking status: Current every day smoker Tobacco type: cigarettes Second hand tobacco smoke exposure: No Alcohol intake: current Drinks per week: 1 Substance use: current Substance use type: crack/cocaine Other substance usage details: social cocaine use, doesn't admit to other substances, UDS pos amphetamines Last use: 05/04/22 Lack of Transportation: No Lack of Food: Never True Current Housing: I Have Housing Concerned About Future Housing: No Difficulty Paying Gas/Electric Bills: No Difficulty Paying for Meds: No Currently Unemployed: No Education: High School Diploma/GED Difficulty w/ Childcare or Family Care: No Gender identity (if verbalized by the patient): Male Spiritual care concerns: No Meds Home Medications and Allergies Home Medications Medication Instructions Recorded Confirmed Type aspirin 81 mg tablet,delayed 81 mg PO DAILY 05/26/21 05/14/22 History release atorvastatin 40 mg tablet 40 mg PO HS 05/26/21 05/14/22 History carvedilol 6.25 mg tablet 6.25 mg PO BID 05/26/21 05/14/22 History furosemide 20 mg tablet 20 mg PO DAILY 05/26/21 05/14/22 History metformin 500 mg tablet 500 mg PO BID 05/26/21 05/14/22 History Allergies Allergy/AdvReac Type Severity Reaction Status Date / Time No Known Allergies Allergy Verified 05/14/22 00:11 Vital Signs Vital Signs - 24 hr 05/13/22 22:28 05/13/22 22:28 05/13/22 22:25 Temperature 98.0 F 98.0 F Pulse Rate 97 92 Respiratory Rate 22 H 22 H Blood Pressure 139/100 H 139/100 H Pulse Oximetry 100 100 97 Oxygen Delivery Room Air Room Air 05/14/22 00:20 05/14/22 02:55 05/14/22 04:03 Temperature 98.2 F 96.9 F L 98.3 F Pulse Rate 82 98 94 Respiratory Rate 25 H 20 21 H Blood Pressure 118/78 131/82 141/106 H Pulse Oximetry 100 98 98 Oxygen Delivery 05/14/22 04:00 05/14/22 04:00 Temperature Pulse Rate 88 Respiratory Rate Blood Pressure
== END 2022-05-14 05:08 | disposition left against medical advice (07) ==
LOC: ANHED 05-14 02:29 → ANHIMU 05-14 02:58
PROVIDERS: Physician Assistant; Admitting Provider Internal Medicine; Emergency Provider Preventive Medicine Aerospace Medicine; Visit Provider Internal Medicine
DX: I11.0 Hypertensive heart disease with heart failure (principal); I50.9 Heart failure, unspecified; R18.8 Other ascites; R06.09 Other forms of dyspnea; R05.9 Cough, unspecified; Z20.822 Contact with and (suspected) exposure to COVID-19; J84.9 Interstitial pulmonary disease, unspecified; J90 Pleural effusion, not elsewhere classified; J34.89 Other specified disorders of nose and nasal sinuses; J02.9 Acute pharyngitis, unspecified; J81.1 Chronic pulmonary edema; J98.11 Atelectasis; J84.10 Pulmonary fibrosis, unspecified; I89.8 Other specified noninfective disorders of lymphatic vessels and lymph nodes; I42.9 Cardiomyopathy, unspecified; E11.9 Type 2 diabetes mellitus without complications; Z91.14 Patient's other noncompliance with medication regimen; R94.31 Abnormal electrocardiogram [ECG] [EKG]; E66.9 Obesity, unspecified; Z68.36 Body mass index [BMI] 36.0-36.9, adult; F17.210 Nicotine dependence, cigarettes, uncomplicated; F15.20 Other stimulant dependence, uncomplicated; Z79.82 Long term (current) use of aspirin; Z79.84 Long term (current) use of oral hypoglycemic drugs; Z79.899 Other long term (current) drug therapy
CPT/HCPCS: 36415; 71045; 71275; 80053; 80307; 83880; 84484; 85025; 85380; 85610; 85730; 87636; 93005; 96374; 99285; G0378; G0379; J1940; Q9967

== ENCOUNTER 2022-07-09 15:36 | Emergency (ER) | payer BC, SELFPAY ==
--- NOTE | ~2022-07-09 | XR_ITS ---
EXAMINATION: XR chest 2V Exam Date/Time: 07/09/2022 16:15 JOB DEVELOPER HISTORY: SOB, cough, CHF, Diabetes, Smoker Comparison: 05/13/2022, 07/14/2021. RESULT: Lines, tubes, and devices: None. Lungs and pleura: Diffuse reticular opacities and cuffing. Streaky bibasilar opacities. Mild-moderat e left costophrenic angle blunting. Cardiomediastinal silhouette: Stable. Other: No acute osseous or upper abdominal finding. IMPRESSION: Pulmonary opacities may represent mild edema and bibasilar atelectasis overlying chronic respiratory bronchiolitis. Small-moderate left pleural effusion. Reviewed, dictated and finalized at location K. DEVELOPER IMPRESSION: Pulmonary opacities may represent mild edema and bibasilar atelectasis overlyin g chronic respiratory bronchiolitis. Small-moderate left pleural effusion.
[2022-07-09 15:43] VITALS: BP 139/98; PULSE 88; RESP 20; TEMP 36.3; O2SAT 98
--- NOTE | 2022-07-09 15:48 | ECG_ITS ---
Measurements Intervals [place] Rate: 79 P: 37 HI: 189 QRS: 221 QRSD: 106 T: 44 QT: 392 QTc: 451 Interpretive Statements SINUS RHYTHM POSSIBLE LEFT ATRIAL ENLARGEMENT INFERIOR INFARCT, AGE INDETERMINATE EXTENSIVE ANTERIOR INFARCT, AGE INDETERMINATE HIGH LATERAL INFARCT, AGE INDETERMINATE ABNORMAL ECG COMPARED TO ECG 05/13/2022 22:32:16 INFERIOR INFARCT IS NOW PRESENT Electronically Signed On 07-09-2022 16:36:23 SPORTS PHYSICIAN by Dave Rowley D.O.
[2022-07-09 15:51] LABS: Glucose Point of Care 173 mg/dl (65-105)
[2022-07-09 16:05] LABS: Basophils Percent Auto 0.4 % (0.2-1.2); Eosinophils Absolute Auto 0.1 K/mm3 (0-0.3); Eosinophils Percent Auto 1.1 % (0-4.4); Hematocrit 40.1 % (42.0-52.0); Hemoglobin 12.9 g/dL (14.0-18.0); Immature Granulocyte Absolute 0.04 K/mm3 (0.00-0.031); Immature Granulocyte Percent A 0.4 % (0-0.5); Lymphocytes Absolute Auto 1.32 K/mm3 (0.9-3.2); Lymphocytes Percent Auto 12.5 % (18.3-44.2); Mean Corpuscular HGB Conc 32.2 g/dl (32-36); Mean Corpuscular Hemoglobin 29.6 pg (26-34); Mean Platelet Volume 10.4 fl (7.4-10.4); Monocytes Absolute Auto 1.2 K/mm3 (0.1-0.6); Monocytes Percent Auto 10.8 % (2.6-8.5); Neutrophils Absolute Auto 7.9 K/mm3 (1.3-6.7); Neutrophils Percent Auto 74.8 % (45.5-73.1); Platelet Count Result 283 k/mm3 (150-375); Red Blood Count 4.36 M/mm3 (4.6-6.20); Red Cell Distribution Width 17.5 % (11.5-14.5); White Blood Count 10.6 K/mm3 (4.5-10.0)
[2022-07-09 16:11] LABS: Alanine Aminotransferase 30 U/L (6-50); Albumin Level 3.5 g/dL (3.5-5.1); Alkaline Phosphatase 315 U/L (38-126); Anion Gap 5 mmol/L (8-16); Aspartate Amino Transferase 41 U/L (17-59); Bilirubin,Total 1.3 mg/dL (0.2-1.3); Blood Urea Nitrogen 35 mg/dL (9-20); Calcium 7.9 mg/dL (8.4-10.2); Carbon Dioxide 29 mmol/L (22-30); Chloride 101 mmol/L (98-107); Estimated Glomerular Filt Rate > 60; Glucose 174 mg/dL (65-110); Potassium 4.2 mmol/L (3.4-5.0); Sodium 135 mmol/L (137-145)
--- NOTE | 2022-07-09 16:38 | ED.SOB ---
HPI - SOB/Dyspnea General Chief Complaint: Shortness of Breath/Dyspnea Stated Complaint: SOB Time Seen by Provider: 07/09/22 16:23 History of Present Illness HPI Narrative: Pt presents with SOB for the last 3 days and swelling of body for awhile. Pt was seen at another facility for SOB several days ago and sent home on meds which made him see things. Pt is not sure what the medication is. Pt denies CP or fever. Pt has a history of CHF and anasarca and DM. Related Data Home Medications Medication Instructions Recorded Confirmed aspirin 81 mg tablet,delayed 81 mg PO DAILY 05/26/21 05/14/22 release atorvastatin 40 mg tablet 40 mg PO HS 05/26/21 05/14/22 carvedilol 6.25 mg tablet 6.25 mg PO BID 05/26/21 05/14/22 furosemide 20 mg tablet 20 mg PO DAILY 05/26/21 05/14/22 metformin 500 mg tablet 500 mg PO BID 05/26/21 05/14/22 Allergies Allergy/AdvReac Type Severity Reaction Status Date / Time No Known Allergies Allergy Verified 05/14/22 00:11 Review of Systems Review of Systems: All systems reviewed & are unremarkable except as noted in HPI and below PMFSH Past Medical History Medical History Cardiomyopathy Diabetes mellitus Hx of medication noncompliance Hypertension Obesity Surgical History Surgical History History of surgery on left wrist Family History Family History Father Acute myocardial infarction of an acute [place] at age 40. Social History Social History Smoking packs per day: 1 Smoking cigarettes per day: 20.0 Years smoked: 39 Smoking pack-years: 39.00 Smoking status: Current every day smoker Tobacco type: cigarettes Second hand tobacco smoke exposure: No Alcohol intake: current Drinks per week: 1 Substance use: current Substance use type: crack/cocaine Other substance usage details: social cocaine use, doesn't admit to other substances, UDS pos amphetamines Last use: 05/04/22 Lack of Transportation: No Lack of Food: Never True Current Housing: I Have Housing Concerned About Future Housing: No Difficulty Paying Gas/Electric Bills: No Difficulty Paying for Meds: No Currently Unemployed: No Education: High School Diploma/GED Difficulty w/ Childcare or Family Care: No Gender identity (if verbalized by the patient): Male Spiritual care concerns: No Exam Const: Nutritional Appearance: obese Orientation/consciousness: patient oriented x3 Limitations: no limitations Eyes: Pupils: Equal, round and reactive pupils present EOM: EOMs intact bilaterally Neck: Neck: normal visual inspection Chest: Chest palpation & inspection: normal inspection of the chest Resp: Effort & Inspection: labored Auscultation: diminished lung sounds Cardio: Rate: regular rate Rhythm: regular rhythm GI: GI Palp: Yes Soft to palpation Auscultation: normal bowel sounds Skin: General skin exam: normal color Wounds: no wounds Neuro: General: patient oriented x3, moves all extremities, no meningeal signs and no focal motor deficits Speech: normal speech Extrem: Other: tight edema to legs and arms Psych: Mental Status: mental status grossly normal Affect: normal affect Attitude: cooperative Course Vital Signs Vital signs: Vital Signs Temperature 97.4 F L 07/09/22 15:43 Pulse Rate 88 07/09/22 15:43 Respiratory Rate 20 07/09/22 15:43 Blood Pressure 139/98 H 07/09/22 15:43 Pulse Oximetry 98 07/09/22 15:43 Oxygen Delivery Room Air 07/09/22 15:43 Temperature 97.4 F L 07/09/22 15:43 Pulse Rate 80 07/09/22 17:03 Respiratory Rate 14 07/09/22 17:03 Blood Pressure 148/105 H 07/09/22 17:03 Pulse Oximetry 100 07/09/22 17:03 Oxygen Delivery Room Air 07/09/22 17:03 MDM - SOB/Dyspnea M
[2022-07-09] MEDS: FUROSEMIDE INJ 40 MG/4 ML VIAL IV PUSH (16:55)
[2022-07-09 17:02] LABS: NT Pro B Type Natriuretic Pept 9500 pg/mL (19.9-100)
[2022-07-09 17:03] VITALS: BP 148/105; PULSE 80; RESP 14; O2SAT 100; O2SAT 96
[2022-07-09 18:05] LABS: Troponin I 0.035 ng/mL (0.000-0.034)
[2022-07-09 19:04] VITALS: BP 168/106; PULSE 89; RESP 18; O2SAT 95
--- NOTE | 2022-07-09 20:30 | PC.NURSE ---
Patient left against medical advice at this time. Patient states, It's too cold in here! You all are freezing me out, it's been eight hours and I am sick and tired of being here. I want to go and smoke!. This nurse explained to patient that an inpatient bed is available upstairs and he will be getting transported immediately where he will be more comfortable. Patient still refused transport stating, I don't care I just want to get out of here. AMA form signed, Tony charge nurse notified
--- NOTE | 2022-07-09 20:56 | PM.IMHP ---
H&P: HPI History of Present Illness Date/Time: 07/09/22 20:56 short-stay summary patient signed out AMA Chief Complaint: Shortness of breath Narrative: This is a 51-year-old male patient who has a history of congestive heart failure and anasarca. The patient has been feeling short of breath the last 3 days. He also has increased swelling to his lower extremities. His last echo on 05/28/2021 showed the following1. Left ventricular chamber dimension is moderately enlarged. ? 2. Left ventricular systolic function is severely reduced, estimated at 20-25%. ? 3. The left ventricular diastolic function is grade I diastolic dysfunction. ? 4. Right ventricular chamber dimension is mildly enlarged. ? 5. Left atrial chamber dimension is moderately enlarged. ? 6. There is mild to moderate mitral valve regurgitation. ? 7. Definity contrast injected to improve exam quality. ? 8. Compared with study from January of 2020 there is no appreciable difference. His H&H is noted to be 12.9 and 40.1. His blood sugars 174. Calcium 7.9. Troponin 0.035. BNP 9500. The patient also uses tobacco and stated that he was short of breath. The patient had been in the emergency room and I assessed him. He had already signed out AMA and had his clothes on. I spoke with the patient and he stated that he wanted to go home and . He stated that he did not want to be admitted and wanted to go outside to smoke cigarette. I explained to him that I could give him a nicotine patch he stated that his ride is coming for him in that there to me crazy people in the emergency room for him to stay. He is waiting for his ride. Patient has 4+ pitting edema to lower extremity. I was not able to physically assessed him thoroughly S he stated he is signing out AMA. The patient stated that he takes 80 mg of Lasix daily he was only given 40 mg of IV Lasix in the emergency room. The patient had only walk approximately 15 ft when he had to sit down in a chair. I had to offer him a chair otherwise he would not been able to walk out of the ER by himself. Patient is on room air. Chest x-ray was read as pulmonary place [place] may represent mild edema and bibasilar atelectasis overlying chronic respiratory bronchiolitis small moderate left pleural effusion. The patient initially was admitted to observation and then changed to inpatient on the date of service of 07/09/2022. The patient signed out AMA from the ER Review of Systems Review of Systems: See HPI All systems reviewed & are unremarkable except as noted in HPI and below Constitutional: Constitutional: Reports as per HPI and Reports no additional constitutional complaints Eyes: Eyes: Reports as per HPI and Reports no additional eye complaints ENT: Reports system reviewed and no additional complaints, except as documented and Reports Normal hearing present Cardiovascular: Cardiovascular: Reports no additional cardiovascular complaints Respiratory: Respiratory: Reports no additional respiratory complaints and Reports no additional respiratory complaints Gastrointestinal: Gastrointestinal: Reports as per HPI and Reports no additional gastrointestinal complaints Musculoskeletal: Musculoskeletal: Reports no additional musculoskeletal complaints Integumentary/Breasts: Skin/Breast: Reports system reviewed and no additional complaints, except as docu and Reports as per HPI Neurologic: Reports system reviewed and no additional complaints, except as documented, Reports as per HPI and Reports Normal hearing present Psychiatric: Psychiatric: Reports no additional psychiatric complaints and Reports as per HPI Endocrine: Endocrine: Reports no additional endocrine complaints Hematologic/Lymphatic: Hematologic/Lymphatic: Reports no additional hematologic/lymphatic complaints Allergic/Immunologic: Allergic/Immunologic: Reports no additional allergic/immunologic complaints PMFSH Past Medical History Medical History (Reviewed 05/27/21 @ 1
== END 2022-07-09 21:03 | disposition left against medical advice (07) ==
PROVIDERS: Emergency Provider Emergency Medicine
DX: I11.0 Hypertensive heart disease with heart failure (principal); I50.9 Heart failure, unspecified; R60.1 Generalized edema; E11.59 Type 2 diabetes mellitus with other circulatory complications; I15.2 Hypertension secondary to endocrine disorders; R79.89 Other specified abnormal findings of blood chemistry; E11.65 Type 2 diabetes mellitus with hyperglycemia; I42.9 Cardiomyopathy, unspecified; E66.9 Obesity, unspecified; F15.10 Other stimulant abuse, uncomplicated; F17.210 Nicotine dependence, cigarettes, uncomplicated; Z79.84 Long term (current) use of oral hypoglycemic drugs; Z79.82 Long term (current) use of aspirin; R94.31 Abnormal electrocardiogram [ECG] [EKG]
CPT/HCPCS: 36415; 71046; 80053; 82948; 83880; 84484; 85025; 93005; 96374; 99284; J1940